=== PATIENT | female | born 1970 | race Caucasian/White ===

== ENCOUNTER → 2018-06-12 | Outpatient (CLI) | payer BC ==
--- NOTE | 2018-06-13 11:13 | XR ---
Right knee HISTORY: Right knee pain 3 views of the right knee Bone mineralization and alignment are maintained. Difficult to exclude suprapatellar joint effusion. Minimal marginal spurring medial compartment mild joint space loss. No fracture or infiltration. IMPRESSION: Possible mild osteoarthritis.
== END | disposition home or self-care (01) ==
LOC: RADXRYALE 15:59
PROVIDERS: ATTEND Physician Assistant Medical
DX: M25.561 Pain in right knee (principal)

== ENCOUNTER → 2019-03-23 | Outpatient (CLI) | payer BC ==
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
== END | disposition home or self-care (01) ==
LOC: RADMRIMAIN 08:00
PROVIDERS: ATTEND Psychiatry & Neurology Neurology
DX: R90.82 White matter disease, unspecified (principal)
CPT/HCPCS: 70551

== ENCOUNTER → 2019-04-06 | Outpatient (CLI) | payer BC ==
--- NOTE | 2019-04-06 15:26 | MR ---
EXAMINATION TYPE: MR brain w con DATE OF EXAM: 04/06/2019 COMPARISON: MRI brain March 23, 2019 HISTORY: Abnormal CT brain, demyelinating disease TECHNIQUE: Multiplanar, multisequence images of the brain and brainstem is performed with IV contrast, utilizing 10 mL intravenous Gadavist . FINDINGS: Post contrast images demonstrate no enhancing intraparenchymal lesions. Moderate amount of lesion is redemonstrated on FLAIR sagittal sequence without definitive infratentorial involvement ou tside of the dimple. The dural venous sinuses appear patent. IMPRESSION: No suspicious enhancing lesions to suggest active demyelinating disease
== END | disposition home or self-care (01) ==
LOC: RADMRIMAIN 14:36
PROVIDERS: ATTEND Psychiatry & Neurology Neurology
DX: G37.9 Demyelinating disease of central nervous system, unspecified (principal)
CPT/HCPCS: 70552; A9585

== ENCOUNTER → 2019-05-13 | Outpatient (CLI) | payer BC ==
--- NOTE | 2019-05-14 09:48 | MM ---
Reason for exam: screening (asymptomatic). Last mammogram was performed 5 years and 10 months ago. History: Excisional biopsy of the right breast, 2004. Physical Findings: A clinical breast exam by your physician is recommended on an annual basis and results should be correlated with mammographic findings. MG Screening Mammo w CAD Bilateral CC, MLO, and XCCL view(s) were taken. Prior study comparison: July 03, 2013, [facility] DIGITAL RIGHT MAMMOGRAM w/CAD. July 01, 2013, bilateral digital screening mammo w/CAD. There are scattered fibroglandular densities. Benign appearing calcifications in the right breast. Chronic deformity right breast consistent with previous biopsy. ASSESSMENT: Benign, BI-RAD 2 RECOMMENDATION: Routine screening mammogram of both breasts in 1 year.
== END | disposition home or self-care (01) ==
LOC: RADMAMWWP 17:06
PROVIDERS: ATTEND Family Medicine
DX: Z12.31 Encounter for screening mammogram for malignant neoplasm of breast (principal)
CPT/HCPCS: 77067

== ENCOUNTER 2020-03-18 20:50 | Emergency (ER) | payer BC, OTHER ==
[2020-03-18 21:01] VITALS: BP 131/78; PULSE 50; RESP 20; TEMP 97.6
== END 2020-03-18 21:55 | disposition home or self-care (01) ==
LOC: EC 20:50
DX: Z02.89 Encounter for other administrative examinations (principal)
CPT/HCPCS: 99499

== ENCOUNTER → 2021-08-04 | Outpatient (CLI) | payer BC ==
--- NOTE | 2021-08-08 09:48 | MM ---
Reason for exam: screening (asymptomatic). Last mammogram was performed 2 years and 3 months ago. History: Patient is postmenopausal. Excisional biopsy of the right breast, 2004. Physical Findings: A clinical breast exam by your physician is recommended on an annual basis and results should be correlated with mammographic findings. MG Screening Mammo w CAD Bilateral CC and MLO view(s) were taken. Prior study comparison: May 13, 2019, bilateral MG screening mammo w CAD. July 01, 2013, bilateral digital screening mammo w/CAD. There are scattered fibroglandular densities. Finding #1: There is stable architectural distortion in the upper quadrant, anterior position of the right breast. Finding #2: There are typically benign dystrophic calcifications in the anterior position of the right breast. There is no discrete abnormality. ASSESSMENT: Benign, BI-RAD 2 RECOMMENDATION: Routine screening mammogram of both breasts in 1 year.
== END | disposition home or self-care (01) ==
LOC: RADMAMWWP 08:17
PROVIDERS: ATTEND Family Medicine
DX: Z12.31 Encounter for screening mammogram for malignant neoplasm of breast (principal); Z78.0 Asymptomatic menopausal state
CPT/HCPCS: 77067

== ENCOUNTER → 2021-10-17 | Outpatient (CLI) | payer BC ==
--- NOTE | 2021-10-17 15:02 | XR ---
Lumbosacral spine HISTORY: Low back pain 5 views of the lumbosacral spine Lumbar vertebral bodies show reduced mineralization. There is an anterolisthesis grade 1 L5-S1. Super ior endplate of L3 shows loss of height of approximately 50%. Superior endplate of L1 also shows loss of height of approximately 50%. No definite retropulsion. Sclerosis is present in the posterior [place] ents of the lower lumbar spine. Some loss of disc height is present at L5-S1, L2-3 and L3-4. There is multilevel spondylosis. No evidence spondylolysis. There is a spinal curvature. IMPRESSION: Osteoporotic compression fractures are suspected. Spondylolisthesis. Degenerative disc di sease and facet arthropathy. A Yellow level critical message alert has been initiated for BRAN Shane via the [facility] Critical Results System on 10/17/2021 2:59 PM. This message alert has been sent to BRAN Shane via the preferences provided by the clinician for the receipt of Radiology Critical Fi ndings. Message ID [id number].
== END | disposition home or self-care (01) ==
LOC: RADXRYALE 14:06
PROVIDERS: ATTEND Physician Assistant Medical
DX: M43.17 Spondylolisthesis, lumbosacral region (principal); M51.36 Other intervertebral disc degeneration, lumbar region
CPT/HCPCS: 72110

== ENCOUNTER → 2021-11-06 | Outpatient (CLI) | payer BC ==
--- NOTE | 2021-11-06 15:08 | USB ---
Reason for exam: clinical finding. History: Patient is postmenopausal. Excisional biopsy of the right breast, 2004. Physical Findings: Nurse Summary: 0.5cm palpable in the right breast (nurse ms). US Breast Limited RT Right limited breast ultrasound including focal area of concern, retroareolar and axilla demonstrates a 0.4 x 0.4 x 0.2cm oval, irregular, solid, calcification at 11 o'clock scar, a 1.3 x 1.6 x 1.2cm oval, cystic lesion at 11 o'clock and a 1.2 x 1.6 x 0.6cm oval, irregular, cystic cluster at 12 o'clock. These results were verbally communicated with the patient and result sheet given to the patient on 11/06/21. ASSESSMENT: Benign, BI-RAD 2 RECOMMENDATION: Return to routine screening mammogram schedule for both breasts. Back on schedule for August 2022. Manage patient on a clinical basis.
== END | disposition home or self-care (01) ==
LOC: RADUSWWP 14:24
PROVIDERS: ATTEND Family Medicine
DX: N63.11 Unspecified lump in the right breast, upper outer quadrant (principal); Z78.0 Asymptomatic menopausal state

== ENCOUNTER 2022-11-17 03:22 | Inpatient (IN) | payer BC ==
[2022-11-17] MEDS ORDERED: MORPHINE SULFATE 4 MG/ML SYRINGE IVP STA (03:37)
[2022-11-17] MEDS ORDERED: ONDANSETRON 4 MG/2 ML VIAL IVP STA (03:37)
[2022-11-17 03:54] LABS: Basophils # (A) 0.1 k/uL (0-0.2); Basophils % (A) 1 %; Eosinophils # (A) 0.1 k/uL (0-0.7); Eosinophils % (A) 1 %; HCT 38.5 % (34.0-46.0); HGB 12.9 gm/dL (11.4-16.0); Lymphocytes # (A) 0.9 k/uL (1.0-4.8); Lymphocytes % (A) 9 %; MCH 30.4 pg (25.0-35.0); MCHC 33.4 g/dL (31.0-37.0); MCV 91.1 fL (80.0-100.0); Mean Platelet Volume 7.1; Monocytes # (A) 0.4 k/uL (0-1.0); Monocytes % (A) 4 %; Neutrophils # (A) 8.5 k/uL (1.3-7.7); Neutrophils % (A) 85 %; Platelet Count 260 k/uL (150-450); RBC 4.23 m/uL (3.80-5.40); RDW 12.7 % (11.5-15.5); WBC 10.1 k/uL (3.8-10.6)
--- NOTE | 2022-11-17 03:57 | XR ---
EXAMINATION TYPE: XR Hip LT and AP Pelvis DATE OF EXAM: 11/17/2022 COMPARISON: NONE HISTORY: Fall. Pain TECHNIQUE: 4 views FINDINGS: There is an acute intertrochanteric fracture left femur. There is mild coxa vera deformity. The pelvic ring is intact. Sacroiliac joints are intact. No pelvic fracture. IMPRESSION: Acute intertrochanteric fracture left femur.
--- NOTE | 2022-11-17 03:59 | XR ---
EXAMINATION TYPE: XR chest 1V DATE OF EXAM: 11/17/2022 COMPARISON: 09/22/2015 HISTORY: Fall. Pain TECHNIQUE: Single view FINDINGS: There is no heart failure nor confluent-like infiltrate. Exam limited by rotation. No pleur al effusion. There are chest leads. There is fracture left posterior lateral fifth rib that could be an acute fracture. There are old left-sided rib fractures. IMPRESSION: No active cardiopulmonary disease. There is likely an acute fracture of the left fifth ri b.
[2022-11-17 04:07] LABS: ALT 26 U/L (4-34); AST 36 U/L (14-36); African American GFR (CKD) >90 (>60 ml/min/1.73 sqM); Alkaline Phosphatase 117 U/L (38-126); Anion Gap 6 mmol/L; Blood Urea Nitrogen 17 mg/dL (7-17); Calcium 8.5 mg/dL (8.4-10.2); Carbon Dioxide 26 mmol/L (22-30); Chloride 104 mmol/L (98-107); Glucose 118 mg/dL (74-99); Non-African American GFR(CKD) >90 (>60 ml/min/1.73 sqM); Potassium 4.1 mmol/L (3.5-5.1); Sodium 136 mmol/L (137-145); Total Bilirubin 0.4 mg/dL (0.2-1.3); Total Protein 6.8 g/dL (6.3-8.2)
[2022-11-17 04:08] LABS: INR 0.9 (<1.2); Partial Thromboplastin Time 24.3 sec (22.0-30.0); Prothrombin Time 9.8 sec (9.0-12.0)
[2022-11-17] MEDS ORDERED: HYDROmorphone 0.5 MG/0.5 ML SYRINGE IVP STA (04:11)
[2022-11-17] MEDS ORDERED: HYDROmorphone 1 MG/ML 1 ML SYRINGE IVP STA (04:15)
--- NOTE | 2022-11-17 04:25 | ED ---
Fall HPI - General Chief Complaint: Fall Stated Complaint: Left hip injury Time Seen by Provider: 11/17/22 03:31 Source: patient, EMS, RN notes reviewed, old records reviewed Mode of arrival: EMS Limitations: no limitations - History of Present Illness Initial Comments: This is a 52-year-old female DF for evaluation. Patient coming in with EMS for severe left hip pain after fall fall from standing with severe left hip pain. No other injuries noted patient did not hit her head no loss of consciousness MD Complaint: fall -: hour(s) Fall From: standing When Fall Occurred: 1 hour CONTENT EDITOR Fall Witnessed: yes, by family Place Fall Occurred: home Loss of Consciousness: none Prolonged Down Time?: no Symptoms Prior to Fall: none Location - Extremities: Left: Thigh, Knee Severity: severe Severity scale (1-10): 7 Quality: burning Context: tripped/slipped Associated Symptoms: denies - Related Data Home Medications Medication Instructions Recorded Confirmed Albuterol Inhaler [Ventolin Hfa 2 puff INHALATION RT-QID PRN 11/17/22 11/17/22 Inhaler] FLUoxetine HCL 60 mg PO DAILY 11/17/22 11/17/22 buPROPion XL [Wellbutrin XL] 150 mg PO DAILY 11/17/22 11/17/22 traZODone HCL [Desyrel] 50 mg PO HS PRN 11/17/22 11/17/22 Previous Rx's Medication Instructions Recorded Aspirin [Adult Low Dose Aspirin EC] 81 mg PO BID #60 tab 11/19/22 Docusate [Colace] 100 mg PO BID #60 capsule 11/19/22 HYDROcodone/APAP 7.5-325MG [[place] 1 - 2 each PO Q6HR PRN #42 tab 11/19/22 7.5-325] Ferrous Sulfate [Slow Fe] 142 mg PO DAILY #30 tab 11/20/22 Fluticasone Propion/Salmeterol 1 inhalation PO BID #1 each 11/20/22 [Advair 250-50 Diskus] Multivitamins, Thera [Multivitamin 1 each PO DAILY@1200 tab 11/22/22 (formulary)] Sennosides-Docusate Sodium 2 each PO HS tab 11/22/22 [Senokot-S] Allergies Allergy/AdvReac Type Severity Reaction Status Date / Time Penicillins Allergy Rash/Hives Verified 11/18/22 15:28 Sulfa (Sulfonamide Allergy Rash/Hives Verified 11/18/22 15:28 Antibiotics) Review of Systems ROS Statement: Those systems with pertinent positive or pertinent negative responses have been documented in the HPI. ROS Other: All systems not noted in ROS Statement are negative. Past Medical History Past Medical History: No Reported History History of Any Multi-Drug Resistant Organisms: MRSA Date of last positivie culture/infection: 2010 MDRO Source:: lt ankle Past Surgical History: Section, Orthopedic Surgery Additional Past Surgical History / Comment(s): lt foot- bone spur, rt ovary Past Psychological History: Depression Past Alcohol Use History: None Reported Past Drug Use History: None Reported - Past Family History Father Additional Family Medical History / Comment(s): CAD with IA and CABG in early 60s General Exam Limitations: physical limitation General appearance: alert, in no apparent distress Head exam: Present: atraumatic, normocephalic, normal inspection Eye exam: Present: normal appearance, PERRL, EOMI. Absent: scleral icterus, co njunctival injection, periorbital swelling ENT exam: Present: normal exam, mucous membranes moist Neck exam: Present: normal inspection. Absent: tenderness, meningismus, lymphadenopathy Respiratory exam: Present: normal lung sounds bilaterally. Absent: respiratory distress, wheezes, rales, rhonchi, stridor Cardiovascular Exam: Present: regular rate, normal rhythm, normal heart sounds. Absent: systolic murmur, diastolic murmur, rubs, gallop, clicks GI/Abdominal exam: Present: soft, normal bowel sounds. Absent: distended, tenderness, guarding, rebound, rigid Extremities exam: Present: normal inspection, full ROM, normal capillary refill, other (Left hip pain). Absent: tenderness, pedal edema, joint swelling, calf tenderness Back exam: Present: normal inspection Neurological exam: Present: alert, oriented X3, CN II-XII intact Psychiatric exam: Present: normal affect, normal mood Skin exam: Present: warm, dry, intact, normal color. Absent: rash Course Vital Signs 11/17/22 11/17/22 03:23 05:00 Temperature 97.8 F Pulse Rate 88 98 Respiratory 16 18 Rate Blood Pressure 152/76 O2 Sat by Pulse 97 Oximetry - Reevaluation(s) Reevaluation #1: 11/17/22 medical record is reviewed Patient symptoms are improved here in the ER Patient informed of results and questions answered Medical Decision Making - Lab Data Result diagrams: 11/21/22 05:28 11/17/22 03:41 Lab Results 11/17/22 11/17/22 11/17/22 Range/Units 03:40 03:41 03:41 WBC 10.1 (3.8-10.6) k/uL RBC 4.23 (3.80-5.40) m/uL Hgb 12.9 (11.4-16.0) gm/dL Hct 38.5 (34.0-46.0) % MCV 91.1 (80.0-100.0) fL MCH 30.4 (25.0-35.0) pg MCHC 33.4 (31.0-37.0) g/dL RDW 12.7 (11.5-15.5) % Plt Count 260 (150-450) k/uL MPV 7.1 Neutrophils % 85 % Lymphocytes % 9 % Monocytes % 4 % Eosinophils % 1 % Basophils % 1 % Neutrophils # 8.5 H (1.3-7.7) k/uL Lymphocytes # 0.9 L (1.0-4.8) k/uL Monocytes # 0.4 (0-1.0) k/uL Eosinophils # 0.1 (0-0.7) k/uL Basophils # 0.1 (0-0.2) k/uL PT 9.8 (9.0-12.0) sec INR 0.9 (<1.2) APTT 24.3 (22.0-30.0) sec Sodium (137-145) mmol/L Potassium (3.5-5.1) mmol/L Chloride (98-107) mmol/L Carbon Dioxide (22-30) mmol/L Anion Gap mmol/L BUN (7-17) mg/dL Creatinine (0.52-1.04) mg/dL Est GFR (CKD-EPI)AfAm (>60 ml/min/1.73 sqM) Est GFR (CKD-EPI)NonAf (>60 ml/min/1.73 sqM) Glucose (74-99) mg/dL Calcium (8.4-10.2) mg/dL Total Bilirubin (0.2-1.3) mg/dL AST (14-36) U/L ALT (4-34) U/L Alkaline Phosphatase (38-126) U/L Total Protein (6.3-8.2) g/dL Albumin (3.5-5.0) g/dL Blood Type O Positive Blood Type Confirm Blood Type Recheck No Previous Record Bld Type Recheck Status CABO Indicated Antibody Screen NEGATIVE Spec Expiration Date 11/20/2022 - 233911/17/22 11/17/22 Range/Units 03:41 03:45 WBC (3.8-10.6) k/uL RBC (3.80-5.40) m/uL Hgb (11.4-16.0) gm/dL Hct (34.0-46.0) % MCV (80.0-100.0) fL MCH (25.0-35.0) pg MCHC (31.0-37.0) g/dL RDW (11.5-15.5) % Plt Count (150-450) k/uL MPV Neutrophils % % Lymphocytes % % Monocytes % % Eosinophils % % Basophils % % Neutrophils # (1.3-7.7) k/uL Lymphocytes # (1.0-4.8) k/uL Monocytes # (0-1.0) k/uL Eosinophils # (0-0.7) k/uL Basophils # (0-0.2) k/uL PT (9.0-12.0) sec INR (<1.2) APTT (22.0-30.0) sec Sodium 136 L (137-145) mmol/L Potassium 4.1 (3.5-5.1) mmol/L Chloride 104 (98-107) mmol/L Carbon Dioxide 26 (22-30) mmol/L Anion Gap 6 mmol/L BUN 17 (7-17) mg/dL Creatinine 0.67 (0.52-1.04) mg/dL Est GFR (CKD-EPI)AfAm >90 (>60 ml/min/1.73 sqM) Est GFR (CKD-EPI)NonAf >90 (>60 ml/min/1.73 sqM) Glucose 118 H (74-99) mg/dL Calcium 8.5 (8.4-10.2) mg/dL Total Bilirubin 0.4 (0.2-1.3) mg/dL AST 36 (14-36) U/L ALT 26 (4-34) U/L Alkaline Phosphatase 117 (38-126) U/L Total Protein 6.8 (6.3-8.2) g/dL Albumin 4.0 (3.5-5.0) g/dL Blood Type Blood Type Confirm O Positive Blood Type Recheck Bld Type Recheck Status Antibody Screen Spec Expiration Date - EKG Data -: EKG Interpreted by Me (EKG is sinus 88 MO 150 QRS 100 QTc 409) - Radiology Data Radiology results: report reviewed (CT brain C-spine chest pelvis and hip x-ray show positive hip fracture), image reviewed Disposition Clinical Impression: Fall, Closed left hip fracture Disposition: HOME SELF-CARE Condition: Fair Is patient prescribed a controlled substance at d/c from ED?: No Time of Disposition: 04:35
[2022-11-17] MEDS ORDERED: ONDANSETRON 4 MG/2 ML VIAL IVP PRN (04:33)
[2022-11-17] MEDS ORDERED: NALOXONE 0.4 MG/ML 1 ML VIAL IV PRN (04:33)
[2022-11-17] MEDS: SODIUM CHLORIDE 0.9% 1,000 ML IV SCH ×2 (04:40→20:39)
--- NOTE | 2022-11-17 04:43 | CT ---
EXAMINATION TYPE: CT brain cspine wo con DATE OF EXAM: 11/17/2022 COMPARISON: Head CT 02/19/2019 HISTORY: Fall CT DLP: 1799.7 mGycm Automated exposure control for dose reduction was used. Images of the brain and cervical spine obtained with no contrast. Ventricles have normal size. There is no mass effect or midline shift. No sign of intracranial hemorr estelita. There is some mild hypodensity in the white matter of both frontal lobes. There is subtle hypod ensity in the right posterior parietal lobe white matter. Calvarium is intact. Cervical vertebra have normal alignment. Posterior elements are intact. No compression fracture. Face t joints are intact. Prevertebral soft tissues are intact. There is mild anterior spurring at C3-4 and C4-5. There is norm al aeration of the mastoid sinuses. IMPRESSION: There is some mild white matter hypodensity that could be microvascular ischemia and appears more not iceable than old exam. Minor degenerative spurring in the cervical spine. No fracture.
[2022-11-17] MEDS: HYDROmorphone 1 MG/ML 1 ML SYRINGE IVP PRN ×4 (07:55→18:54)
[2022-11-17] MEDS ORDERED: TEMAZEPAM 15 MG CAP PO PRN (11:02)
[2022-11-17] MEDS ORDERED: MAGNESIUM HYDROXIDE 2,400 MG/10 ML CUP PO PRN (11:02)
[2022-11-17] MEDS ORDERED: ACETAMINOPHEN TAB 325 MG TAB PO PRN (11:02)
[2022-11-17] MEDS ORDERED: traMADol 50 MG TAB PO PRN (11:02)
[2022-11-17] MEDS ORDERED: bisacodyL 10 MG SUPP RECTAL PRN (11:02)
[2022-11-17] MEDS ORDERED: NA PHOS,M-B/NA PHOS,DI-BA 133 ML ENEMA RECTAL PRN (11:02)
[2022-11-17] MEDS ORDERED: ALBUTEROL NEBULIZED 2.5 MG/3 ML INHALATION PRN (11:35)
[2022-11-17] MEDS: diazePAM 5 MG TAB PO PRN ×2 (11:42→20:39)
[2022-11-17] MEDS: FLUoxetine HCL 20 MG CAP PO SCH (11:42)
[2022-11-17] MEDS ORDERED: NICOTINE GUM (POLACRILEX) 2 MG GUM BUCCAL PRN (11:47)
--- NOTE | 2022-11-17 11:52 | P.CONS ---
History of Present Illness - Reason for Consult Consult date: 11/17/22 - History of Present Illness Patient is a 52-year-old female with a history of asthma, tobacco abuse, and prior MRSA infection who presented to the ER after a fall off the toilet. She was subsequently been admitted to orthopedic surgery and we were asked to consult for medical management and preoperative evaluation. Hip x-ray-left intertrochanteric femur fracture Chest x-ray-left fifth rib fracture CT head and [id number] white matter hypodensity could be microvascular ischemia, minor degenerative spurring cervical spine. No fracture Patient seen and examined at bedside. She reports that she fell asleep, toilet yesterday and fell off. She denies any recent chest pain or syncopal episodes. For the last 6 months to one year she has been short of breath with exertion. She does have some shortness of breath with climbing up a flight of stairs or walking 3 blocks. She has not had any changes in her inhaler regiment. She has no history of any prior coronary artery disease. She adamantly denies any chest pain. She smokes approximately one pack daily. She takes albuterol as needed however she is using her rescue inhaler at least 3 times but more often multiple times throughout the week. She is actively wheezing, she states that she typically is wheezing like this every day. Currently she does complain of pain and spasming in her head. She denies any lightheadedness, dizziness, nausea, vomiting, difficulty with urination. Pertinent positives and negatives as discussed in HPI, a complete review of systems was performed and all other systems are negative. Vital signs reviewed General: nontoxic, no distress, appears at stated age Derm: warm, dry Head: atraumatic, normocephalic, symmetric Eyes: EOMI, no lid lag, anicteric sclera, pupils equal round reactive to light ENT: Nose and ears atraumatic, no thrush, no pharyngeal erythema Neck: No thyromegaly, no cervical lymphadenopathy, trachea midline, supple Mouth: no lip lesion, mucus membranes moist Cardiovascular: S1S2 reg, no murmur, positive posterior tibial pulse bilateral, no edema, capillary refill less than 2 seconds Lungs: Wheezing bilaterally, no rhonchi, no rales, no wheeze, no accessory muscle use Abdominal: soft, nontender to palpation, no guarding, no appreciable organomegaly, normal bowel sounds Ext: no gross muscle atrophy, muscle strength 5 out of 5 in all 4 extremities, no contractures Neuro: CN II-XII grossly intact, light touch intact all 4 extremities, finger to nose within normal limits, Psych: Alert, oriented, appropriate affect Assessment/Plan: Patient is a 52-year-old female with a left femur fracture status post fall - Plan is for IM nailing tomorrow - NSQIP despite dyspnea with exertion risk for IM nailing at cardiac complication 0.1% 0% serious complication 3.6% no additional testing need at this time, medically optimized for surgery with the addition of duonebs. discussed concerns for respiratory issues to arise post-op including PNA, patient and aware -Patient will need outpatient bone density testing for osteoprosis Moderate persistent asthma, suboptimally controlled -Doubt acute exacerbation as patient states that breathing is at baseline. -Start scheduled DuoNeb's and when necessary albuterol -Patient would benefit from a maintenance inhaler or leukotriene agonist on discharge. Tobacco abuse - nicotine replacement - cessation Thank you for allowing us to participate in the care of this pleasant patient. Do not hesitate to contact us with questions. Someone can be reached from the [facility] hospitalist group all hours of the day at [phone] or via [employer]. Past Medical History Past Medical History: Asthma Additional Past Medical History / Comment(s): Compression fractures in lower spine, depression History of Any Multi-Drug Resistant Organisms: MRSA Year Discovered:: 2010 MDRO Source:: lt ankle Past Surgical History: Section, Orthopedic Surgery Additional Past Surgical History / Comment(s): lt foot- bone spur, rt ovarian tumor removed, 2 right breast lumpectomy Past Psychological History: Depression Smoking Status: Current every day smoker (1 PPD) Past Alcohol Use History: None Reported, Rare Past Drug Use History: None Reported - Past Family History Father Additional Family Medical History / Comment(s): CAD with MA and CABG in early 60s Medications and Allergies Home Medications Medication Instructions Recorded Confirmed Type Albuterol Inhaler [Ventolin Hfa 2 puff INHALATION RT-QID PRN 11/17/22 11/17/22 History Inhaler] FLUoxetine HCL 60 mg PO DAILY 11/17/22 11/17/22 History buPROPion XL [Wellbutrin XL] 150 mg PO DAILY 11/17/22 11/17/22 History traZODone HCL [Desyrel] 50 mg PO HS PRN 11/17/22 11/17/22 History Allergies Allergy/AdvReac Type Severity Reaction Status Date / Time Penicillins Allergy Rash/Hives Verified 11/17/22 11:32 Sulfa (Sulfonamide Allergy Rash/Hives Verified 11/17/22 11:32 Antibiotics) Physical Exam Osteopathic Statement: *. No significant issues noted on an osteopathic st ructural exam other than those noted in the History and Physical/Consult. Vitals: Vital Signs Temp Pulse Pulse Resp BP BP Pulse Ox 11/17/22 05:40 99.4 F 91 17 165/90 96 11/17/22 05:00 98 18 11/17/22 03:23 97.8 F 88 16 152/76 97 Intake and Output 11/16/22 11/17/22 11/17/22 22:59 06:59 14:59 Other: Weight 90.718 kg 90.718 kg Results CBC & Chem 7: 11/17/22 03:41 11/17/22 03:41 Labs: Abnormal Lab Results - Last 24 Hours (Table) 11/17/22 11/17/22 Range/Units 03:41 03:41 Neutrophils # 8.5 H (1.3-7.7) k/uL Lymphocytes # 0.9 L (1.0-4.8) k/uL Sodium 136 L (137-145) mmol/L Glucose 118 H (74-99) mg/dL
[2022-11-17] MEDS: IPRATROPIUM-ALBUTEROL 3 ML NEB INHALATION SCH ×3 (12:23→19:08)
[2022-11-17] MEDS: HYDROcodone/APAP 10-325MG 1 EACH TAB PO PRN ×2 (13:15→20:38)
[2022-11-17] MEDS: buPROPion XL 150 MG TAB.ER.24H PO SCH (15:23)
[2022-11-17] MEDS: SENNOSIDES-DOCUSATE SODIUM 1 EACH TAB PO SCH (20:40)
--- NOTE | 2022-11-17 23:14 | P.HPOR ---
History of Present Illness H&P Date: 11/17/22 Chief Complaint: Left hip fracture Patient is a pleasant 52 yo female seen and examined at bedside this morning. She was admitted through the ED late last evening after reporting that she fell asleep on toilet yesterday and fell off onto her left hip. She developed immediate sever pain and unable to ambulate..She continues to have pain as expected at the left hip. She denies knee,ankle foot pain. She denies numbness,calf pain or other. Review of Systems All systems: negative Constitutional: Denies chills, Denies fever Eyes: denies blurred vision, denies pain Ears, nose, mouth and throat: Denies headache, Denies sore throat Cardiovascular: Denies chest pain, Denies shortness of breath Respiratory: Denies cough Gastrointestinal: Denies abdominal pain, Denies diarrhea, Denies nausea, Denies vomiting Genitourinary: Denies dysuria, Denies hematuria Musculoskeletal: Denies myalgias Integumentary: Denies pruritus, Denies rash Neurological: Denies numbness, Denies weakness Psychiatric: Denies anxiety, Denies depression Endocrine: Denies fatigue, Denies weight change Past Medical History Past Medical History: Asthma Additional Past Medical History / Comment(s): Compression fractures in lower spine, depression History of Any Multi-Drug Resistant Organisms: MRSA Date of last positivie culture/infection: 2010 MDRO Source:: lt ankle Past Surgical History: Section, Orthopedic Surgery Additional Past Surgical History / Comment(s): lt foot- bone spur, rt ovarian tumor removed, 2 right breast lumpectomy Past Psychological History: Depression Smoking Status: Current every day smoker (1 PPD) Past Alcohol Use History: None Reported, Rare Past Drug Use History: None Reported - Past Family History Father Additional Family Medical History / Comment(s): CAD with TX and CABG in early 60s Medications and Allergies Home Medications Medication Instructions Recorded Confirmed Type Albuterol Inhaler [Ventolin Hfa 2 puff INHALATION RT-QID PRN 11/17/22 11/17/22 History Inhaler] FLUoxetine HCL 60 mg PO DAILY 11/17/22 11/17/22 History buPROPion XL [Wellbutrin XL] 150 mg PO DAILY 11/17/22 11/17/22 History traZODone HCL [Desyrel] 50 mg PO HS PRN 11/17/22 11/17/22 History Allergies Allergy/AdvReac Type Severity Reaction Status Date / Time Penicillins Allergy Rash/Hives Verified 11/17/22 11:32 Sulfa (Sulfonamide Allergy Rash/Hives Verified 11/17/22 11:32 Antibiotics) Physical Examination Inspection of the lower extremitie shows a shortened externally rotated left lower extremity. There are no wounds, erythema or ecchymoses. The knee is nontender without effusion. She has painless range of motion of the knee, ankle foot and toes. Range of motion of the left hip is not tested due to fracture. Neurovascular status is intact throughout the lower extremity with motor and sensation fully intact. Calf is soft and nontender. 2+ dorsalis pedis pulse and less than 2 second cap refill is present. Results - Labs Labs: Abnormal Lab Results - Last 24 Hours (Table) 11/17/22 11/17/22 Range/Units 03:41 03:41 Neutrophils # 8.5 H (1.3-7.7) k/uL Lymphocytes # 0.9 L (1.0-4.8) k/uL Sodium 136 L (137-145) mmol/L Glucose 118 H (74-99) mg/dL H & H 11/17/22 Range/Units 03:41 Hgb 12.9 (11.4-16.0) gm/dL Hct 38.5 (34.0-46.0) % Coagulation 11/17/22 Range/Units 03:41 INR 0.9 (<1.2) Result Diagrams: 11/17/22 03:41 11/17/22 03:41 - Diagnostic results Hip x-ray: report reviewed, image reviewed (left IT femur fracture) Assessment and Plan (1) Closed left hip fracture Narrative/Plan: Patient has been reviewed with Dr. Funez. Plan is to proceed with surgical intervention,Saturday11/18/22, including IM hip screw/gamma nail for her IT femur fracture. She is NPO after MN. Procedure and consent ordered. Patient understands risks and benefits and desires to proceed. Current Visit: Yes Status: Acute Code(s): S72.002A - FRACTURE OF UNSP PART OF NECK OF LEFT FEMUR, INIT SNOMED Code(s): 994551701 Plan: Left hip IM hip screw gamma nail for left IT femur fracture Time with Patient: Less than 30
[2022-11-18] MEDS: HYDROmorphone 1 MG/ML 1 ML SYRINGE IVP PRN ×4 (02:57→22:30)
[2022-11-18] MEDS: IPRATROPIUM-ALBUTEROL 3 ML NEB INHALATION SCH ×4 (07:09→21:26)
[2022-11-18] MEDS: FLUoxetine HCL 20 MG CAP PO SCH (07:16)
[2022-11-18] MEDS: HYDROcodone/APAP 10-325MG 1 EACH TAB PO PRN ×2 (07:16→20:06)
[2022-11-18] MEDS: diazePAM 5 MG TAB PO PRN ×2 (07:16→20:07)
[2022-11-18] MEDS: buPROPion XL 150 MG TAB.ER.24H PO SCH (07:26)
[2022-11-18] MEDS: SODIUM CHLORIDE 0.9% 1,000 ML IV SCH ×2 (09:12→09:39)
[2022-11-18 09:37] LABS: Basophils # (A) 0.05 X 10*3/uL (0.00-0.10); Basophils % (A) 0.7 %; Eosinophils # (A) 0.08 X 10*3/uL (0.04-0.35); Eosinophils % (A) 1.1 %; HCT 34.5 % (37.2-46.3); HGB 11.3 g/dL (12.0-15.0); Immature Grans, Automated 0.7 %; Lymphocytes # (A) 0.91 X 10*3/uL (0.90-5.00); Lymphocytes % (A) 12.8 %; MCH 30.2 pg (27.0-32.0); MCHC 32.8 g/dL (32.0-37.0); MCV 92.2 fL (80.0-97.0); Mean Platelet Volume 8.8 fL (9.5-12.2); Monocytes # (A) 0.59 X 10*3/uL (0.20-1.00); Monocytes % (A) 8.3 %; NRBC Per 100 WBC 0 /100 WBCS (0.0-0.0); Neutrophils # (A) 5.45 X 10*3/uL (1.80-7.70); Neutrophils % (A) 76.4 %; Platelet Count 205 X 10*3/uL (140-440); RBC 3.74 X 10*6/uL (4.10-5.20); WBC 7.13 X 10*3/uL (4.50-10.00)
[2022-11-18] MEDS: MULTIVITAMINS, THERA 1 EACH TAB PO SCH (09:56)
--- NOTE | 2022-11-18 11:05 | P.PN ---
Subjective Progress Note Date: 11/18/22 Patient is a 52-year-old female with a history of asthma, tobacco abuse, and prior MRSA infection who presented to the ER after a fall off the toilet. She was subsequently been admitted to orthopedic surgery and we were asked to consult for medical management and preoperative evaluation. Seen and examined at bedside. Feeling slightly better as pain is better controlled today. No chest pain, chronic shortness of breath is better than yesterday. present at bedside and all questions answered. General: nontoxic, no distress, appears at stated age Derm: warm, dry Head: atraumatic, normocephalic, symmetric Eyes: EOMI, no lid lag, anicteric sclera Mouth: no lip lesion, mucus membranes moist Cardiovascular: S1S2 reg, no murmur, positive posterior tibial pulse bilateral, Lungs: Faint expiratory wheeze bilateral, ronchi left base, no rales , no accessory muscle use Ext: no gross muscle atrophy, no edema, no contractures Neuro: CN II-XI grossly intact, no focal neuro deficits Psych: Alert, oriented, appropriate affect Assessment/Plan: Patient is a 52-year-old female with a left femur fracture status post fall - Plan is for IM nailing today - NSQIP calculated yesterday despite dyspnea with exertion risk for IM nailing at cardiac complication 0.1% 0% serious complication 3.6% no additional testing need at this time, medically optimized for surgery with the addition of duonebs. discussed concerns for respiratory issues to arise post-op including PNA, patient and aware -Patient will need outpatient bone density testing for osteoprosis Moderate persistent asthma, suboptimally controlled -Doubt acute exacerbation as patient states that breathing is at baseline. -continue scheduled DuoNeb's and when necessary albuterol -Patient would benefit from a maintenance inhaler or leukotriene agonist on discharge. Elevated blood pressure with out diagnosis of hypertension -Suspect secondary to pain -Continue to follow blood pressures Tobacco abuse - nicotine replacement - cessation Thank you for allowing us to participate in the care of this pleasant patient. Do not hesitate to contact us with questions. Someone can be reached from the [facility] hospitalist group all hours of the day at [phone] or via perfect serve. Active Medications Generic Name Dose Route Start Last Admin Trade Name Freq PRN Reason Stop Dose Admin Acetaminophen 650 mg 11/17/22 11:02 Acetaminophen Tab 325 Mg Tab PO Q4HR PRN Pain Scale 1 to 5 Hydrocodone Bitart/Acetaminophen 1 each 11/17/22 11:02 Hydrocodone/Apap 5-325mg 1 Each Tab PO Q6HR PRN Pain Scale 1 to 5 Hydrocodone Bitart/Acetaminophen 1 each 11/17/22 11:02 11/18/22 07:16 Hydrocodone/Apap 10-325mg 1 Each Tab PO 1 each Q6H PRN Administration Pain Scale 6 to 10 Albuterol Sulfate 2.5 mg 11/17/22 11:35 Albuterol Nebulized 2.5 Mg/3 Ml INHALATION RT-QID PRN Shortness Of Breath Or Wheezing Albuterol/Ipratropium 3 ml 11/17/22 12:00 11/18/22 11:00 Ipratropium-Albuterol 3 Ml Neb INHALATION 3 ml RT-QID JAYSHREE Administration Bisacodyl 10 mg 11/17/22 11:02 Bisacodyl 10 Mg Supp RECTAL DAILY PRN Constipation Bupropion HCl 150 mg 11/17/22 11:45 11/18/22 07:26 Bupropion Xl 150 Mg Tab.Er.24h PO 150 mg DAILY JAYSHREE Administration Diazepam 2.5 mg 11/17/22 11:02 11/18/22 07:16 Diazepam 5 Mg Tab PO 2.5 mg Q8HR PRN Administration Mild Spasms Fluoxetine HCl 60 mg 11/17/22 11:45 11/18/22 07:16 Fluoxetine Hcl 20 Mg Cap PO 60 mg DAILY JAYSHREE Administration Hydromorphone HCl 0.5 mg 11/17/22 04:33 Hydromorphone 0.5 Mg/0.5 Ml Syringe IVP Q3HR PRN Moderate Pain (Scale 4 to 6) Hydromorphone HCl 1 mg 11/17/22 04:33 11/18/22 09:39 Hydromorphone 1 Mg/Ml 1 Ml Syringe IVP 1 mg Q3HR PRN Administration Severe Pain (Scale 7 to 10) Sodium Chloride 1,000 mls @ 75 mls/hr 11/17/22 04:45 11/18/22 09:39 Saline 0.9% IV 75 mls/hr .[id number] JAYSHREE Administration Magnesium Hydroxide 2,400 mg 11/17/22 11:02 Magnesium Hydroxide 2,400 Mg/10 Ml Cup PO DAILY PRN Constipation Multivitamins 1 each 11/18/22 12:00 11/18/22 09:56 Multivitamins, Thera 1 Each Tab PO Not Given DAILY@1200 JAYSHREE Naloxone HCl 0.2 mg 11/17/22 04:33 Naloxone 0.4 Mg/Ml 1 Ml Vial IV Q2M PRN Opioid Reversal Nicotine Polacrilex 2 mg 11/17/22 11:47 Nicotine Gum (Polacrilex) 2 Mg Gum BUCCAL Q4HR PRN Nicotine Cravings Ondansetron HCl 4 mg 11/17/22 04:33 Ondansetron 4 Mg/2 Ml Vial IVP Q8HR PRN Nausea And Vomiting Senna/Docusate Sodium 2 each 11/17/22 21:00 11/17/22 20:40 Sennosides-Docusate Sodium 1 Each Tab PO Not Given HS JAYSHREE Sodium Biphosphate/Sodium Phosphate 133 ml 11/17/22 11:02 Na Phos,M-B/Na Phos,Di-Ba 133 Ml Enema RECTAL DAILY PRN Constipation Temazepam 15 mg 11/17/22 11:02 Temazepam 15 Mg Cap PO HS PRN Insomnia Tramadol HCl 50 mg 11/17/22 11:02 Tramadol 50 Mg Tab PO Q6HR PRN Pain Scale 1 to 5 Objective - Vital Signs Vital signs: Vital Signs Temp 99.5 F 11/18/22 07:44 Pulse 76 11/18/22 11:02 Resp 18 11/18/22 07:44 BP 160/95 11/18/22 07:44 Pulse Ox 91 L 11/18/22 07:44 FiO2 Intake & Output 11/17/22 11/18/22 11/18/22 18:59 06:59 18:59 Output Total 1500 550 Balance -1500 -550 Weight 90.718 kg Output: Urine 1500 550 Other: Voiding Method Indwelling Catheter Indwelling Catheter Indwelling Catheter - Labs CBC & Chem 7: 11/18/22 06:31 11/17/22 03:41 Labs: Abnormal Lab Results - Last 24 Hours (Table) 11/18/22 Range/Units 06:31 RBC 3.74 L (4.10-5.20) X 10*6/uL Hgb 11.3 L (12.0-15.0) g/dL Hct 34.5 L (37.2-46.3) % MPV 8.8 L (9.5-12.2) fL Immature Gran # 0.05 H (0.00-0.04) X 10*3/uL
[2022-11-18] MEDS ORDERED: IV FLUID CONTINUATION 1,000 ML IV ONE (15:12)
[2022-11-18 15:23] LABS: Glucose,Whole Blood 72 mg/dL (70-110)
[2022-11-18] MEDS ORDERED: ONDANSETRON 4 MG/2 ML VIAL IVP ONE (15:37)
[2022-11-18] MEDS ORDERED: DEXAMETHASONE SOD PHOSPHATE 4 MG/ML 1 ML VIAL IVP ONE (15:37)
[2022-11-18] MEDS ORDERED: PROPOFOL 10 MG/ML 20 ML VIAL IV ONE (15:52)
[2022-11-18] MEDS ORDERED: SUCCINYLCHOLINE CHLORIDE 200 MG/10 ML VIAL IV ONE (15:52)
[2022-11-18] MEDS ORDERED: HYDROmorphone (PF) 1 MG/ML ONE (15:52)
[2022-11-18] MEDS ORDERED: NEOSTIGMINE 1 MG/ML 10 ML VIAL ONE (15:52)
[2022-11-18] MEDS ORDERED: fentaNYL (PF) 50 MCG/ML 2 ML AMP ONE (15:52)
[2022-11-18] MEDS ORDERED: PHENYLEPHRINE-0.9% NACL SYG 1,000 MCG/10 ML SYRINGE ONE (15:52)
[2022-11-18] MEDS ORDERED: ROCURONIUM 10 MG/ML (5 ML VIAL) IV ONE (15:52)
[2022-11-18] MEDS ORDERED: MIDAZOLAM 2 MG/2 ML VIAL ONE (15:52)
[2022-11-18] MEDS ORDERED: GLYCOPYRROLATE 0.2 MG/ML 2 ML VIAL ONE (15:52)
[2022-11-18] MEDS ORDERED: ONDANSETRON 4 MG/2 ML VIAL ONE (15:52)
[2022-11-18] MEDS ORDERED: SODIUM CHLORIDE 0.9% 100 ML with ceFAZolin 2,000 MG IV ONE ×2 (16:32)
[2022-11-18] MEDS ORDERED: LACTATED RINGERS 1,000 ML IV ONE (17:04)
[2022-11-18] MEDS ORDERED: HYDROmorphone 0.5 MG/0.5 ML SYRINGE IVP ONE ×2 (17:37→17:48)
[2022-11-18 17:50] LABS: Glucose,Whole Blood 104 mg/dL (70-110)
--- NOTE | 2022-11-18 18:01 | FL ---
Intraoperative/procedural fluoroscopic services were provided. Total fluoroscopy time is 1 minute 42 seconds with a total of 4 submitted images to PACS. Please see the operative/procedural note for furt her details.
[2022-11-18] MEDS: ASPIRIN 81 MG PO SCH (22:30)
[2022-11-18] MEDS: SENNOSIDES-DOCUSATE SODIUM 1 EACH TAB PO SCH (22:30)
--- NOTE | 2022-11-18 23:52 | OP ---
OPERATIVE REPORT PREOPERATIVE DIAGNOSIS: Left subtrochanteric femur fracture. POSTOPERATIVE DIAGNOSIS: Left subtrochanteric femur fracture. PROCEDURE PERFORMED: Closed reduction with intramedullary hip screw fixation for a left subtrochanteric femur fracture. COPPER PLATE PRINTER: Dandre Cardoza PA-C ANESTHESIA: General endotracheal. ESTIMATED BLOOD LOSS: 75 mL. TOURNIQUET: None. DRAINS: None. COMPLICATIONS: None apparent. DISPOSITION: Postanesthesia care unit. INDICATIONS: Debra is a very pleasant 52-year-old female, who injured her left hip yesterday after she fell. She apparently fell asleep while going to the bathroom in the middle of the night and fell off the toilet onto her left hip. She was brought via ambulance to the [facility]. Workup including x-rays revealed a left subtrochanteric femur fracture. She was admitted to my service. 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 She is an independent ambulator. Recommendation was for intramedullary hip screw fixation for her left subtrochanteric femur fracture. The risks of procedure were discussed with her in detail. These risks include, but are not limited to risk of infection, nerve damage, bleeding, pain, and a small risk of deep vein thrombosis, which could lead to fatal pulmonary embolism. Further risks include hardware irritation and failure of the fracture to heal. Both of these may necessitate further operative procedures. All of her questions with regard to the risks of procedure were answered to her satisfaction. An appropriate informed consent was obtained. DESCRIPTION OF THE PROCEDURE: The patient was identified in preoperative holding area. Surgical site was marked by both the patient and myself. She was given 2 g of Ancef IV for prophylactic purposes. She was then transported to the operative suite. She was placed supine on the operating room table. A general anesthetic was then administered, and dosed per the Anesthesia Department without apparent complication. She was then placed onto the fracture table, well-padded in preparation for surgery. Fluoroscopy was then brought in. The fracture was reduced with traction and rotation. When the fracture was reduced as anatomically as possible, we proceeded. The patient's left lower extremity was then prepped and draped in the usual sterile fashion. A standard surgical pause was undertaken to ensure that we were operating the correct site and that appropriate preoperative antibiotics were given. All staff in room were in agreement and we proceeded. Fluoroscopy was brought in. The tip of the greater trochanter was identified. An approximate 3 to 4 cm incision starting at the tip of the greater trochanter extending proximally in line with the shaft of the femur was then made with a 10 blade scalpel. Dissection was carried down sharply to the tensor fascia. The tensor fascia was then incised in line with the incision. The threaded guide pin and the starting awl were utilized to gain entrance to the proximal femur. The guide pin was placed at the medial aspect of the tip of the greater trochanter. It was then advanced distally down the center of the femur. This placement was confirmed with fluoroscopic imaging. I then utilized a starting reamer to gain access to the proximal femur. The threaded guide pin was then removed, and the ball-tipped guidewire was then placed through the proximal opening hole in the femur and then down the shaft of the femur. Again, this placement was confirmed with fluoroscopic imaging. I then measured for length. Given it was a subtrochanteric fracture of the femur, I did decide to use a long cephalomedullary nail. I then measured for length of 400 mm nail was deemed appropriate. I then reamed the diaphysis of the femur. I started with a 9 mm reamer and incrementally increased up until 13 mm reamers as to accept an 11 mm nail. I then had the [employer] footwear sales representative to open an 11 mm x 125 degree by 400 mm long Gamma nail. This was assembled onto the networking administrator on the back table. The long Gamma nail was then inserted over the ball-tipped guidewire and down the shaft of the femur. The ball-tipped guidewire was removed. Placement of the nail was confirmed with fluoroscopic imaging throughout its placement. I then proceeded with placement of the hip screw. A second small incision was made on the lateral thigh. The threaded guide pin was then advanced through the nail into the center of the femoral head on both AP and lateral views. The tip-apex distance was appropriate. I measured for length of 105 mm partially-threaded cannulated hip screw was chosen. The reamer was set at 105 mm. The threaded guide pin was over-reamed under fluoroscopic imaging. The footwear sales representative opened a Gely 105 mm cannulated partially-threaded hip screw. This was then inserted over the threaded guide pin deep in the center of the femoral head. Her bone quality was excellent. The screw had an excellent purchase in bone. The tip-apex distance was appropriate after the screw was fully seated. The set screw was then tightened fully as to lock the proximal screw. Traction was then let off the femur as to compress at the fracture site as much as possible. Again, I assessed for rotation of the distal femur. The toes were pointing straight ahead. The rotation of the femur was appropriate. When I was satisfied with rotation and the compression of the fracture site, we proceeded with locking the nail distally. I then positioned the image intensifier in such a way as to provide perfect circles at the distal fracture site. I then placed a 5.0 mm x 50 mm distal locking screw, which was placed through the nail and engaged both cortices of the distal femur. Again, this was confirmed with fluoroscopic imaging. At this point, no further work was deemed necessary. The fracture was reduced nicely and it was compressed as much as possible. The hip screw was placed through the nail into the center of the femoral head on both AP and lateral views. The tip-apex distance was appropriate. The rotation of the left femur was evaluated and deemed appropriate. The distal locking screw was then placed through the distal oblong hole of the nail and was of appropriate length. At this point in time, no further work was deemed necessary. The 3 wounds were thoroughly irrigated with sterile saline solution with antibiotic added. The tensor fascia was closed with 0 Vicryl interrupted suture. The subcutaneous tissue was closed with 2-0 Vicryl interrupted suture, and the skin was closed with stainless steel adelina. Sterile compressive dressings were applied. All sponge and needle counts were deemed correct prior to closure. The patient tolerated the procedure without apparent complication. She was transferred to the recovery room in stable condition. MMODL / IJN: [id number] /
[2022-11-19] MEDS: HYDROmorphone 1 MG/ML 1 ML SYRINGE IVP PRN ×2 (02:17→22:23)
[2022-11-19] MEDS: HYDROcodone/APAP 10-325MG 1 EACH TAB PO PRN ×3 (04:49→18:43)
[2022-11-19] MEDS: diazePAM 5 MG TAB PO PRN ×2 (04:50→18:43)
[2022-11-19] MEDS: IPRATROPIUM-ALBUTEROL 3 ML NEB INHALATION SCH ×4 (07:47→20:51)
[2022-11-19] MEDS: HYDROmorphone 0.5 MG/0.5 ML SYRINGE IVP PRN ×2 (07:57→13:35)
[2022-11-19] MEDS: buPROPion XL 150 MG TAB.ER.24H PO SCH (07:58)
[2022-11-19] MEDS: ASPIRIN 81 MG PO SCH ×2 (07:58→20:23)
[2022-11-19] MEDS: FLUoxetine HCL 20 MG CAP PO SCH (07:58)
[2022-11-19 08:55] LABS: Basophils # (A) 0.01 X 10*3/uL (0.00-0.10); Basophils % (A) 0.1 %; Eosinophils # (A) 0 X 10*3/uL (0.04-0.35); Eosinophils % (A) 0 %; HCT 35.3 % (37.2-46.3); HGB 10.9 g/dL (12.0-15.0); Immature Grans, Automated 0.5 %; Lymphocytes # (A) 0.37 X 10*3/uL (0.90-5.00); Lymphocytes % (A) 3.8 %; MCH 29.7 pg (27.0-32.0); MCHC 30.9 g/dL (32.0-37.0); MCV 96.2 fL (80.0-97.0); Mean Platelet Volume 9.5 fL (9.5-12.2); Monocytes # (A) 0.68 X 10*3/uL (0.20-1.00); NRBC Per 100 WBC 0 /100 WBCS (0.0-0.0); Neutrophils # (A) 8.58 X 10*3/uL (1.80-7.70); Neutrophils % (A) 88.6 %; Platelet Count 222 X 10*3/uL (140-440); RBC 3.67 X 10*6/uL (4.10-5.20); RDW 12.7 % (11.5-14.5); WBC 9.69 X 10*3/uL (4.50-10.00)
[2022-11-19] MEDS: CALCIUM CARBONATE 500 MG CHEWABLE PO PRN ×2 (10:37→20:23)
--- NOTE | 2022-11-19 11:33 | P.PN ---
Subjective Progress Note Date: 11/19/22 Patient is a 52-year-old female with a history of asthma, tobacco abuse, and prior MRSA infection who presented to the ER after a fall off the toilet. She was subsequently been admitted to orthopedic surgery and we were asked to consult for medical management and preoperative evaluation. She underwent IM nailing on 11/18/22. Seen and examined at bedside. She is up in the chair. It was very difficult for her to get to the chair. She states pain is well controlled at this time. Denies any chest pain or shortness of breath. 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 General: nontoxic, no distress, appears at stated age Derm: warm, dry Head: atraumatic, normocephalic, symmetric Eyes: EOMI, no lid lag, anicteric sclera Mouth: no lip lesion, mucus membranes moist Cardiovascular: S1S2 reg, no murmur, positive posterior tibial pulse bilateral, Lungs: Faint expiratory wheeze bilateral, ronchi left base, no rales , no accessory muscle use Ext: no gross muscle atrophy, no edema, no contractures Neuro: CN II-XI grossly intact, no focal neuro deficits Psych: Alert, oriented, appropriate affect Assessment/Plan: Patient is a 52-year-old female with a left femur fracture status post fall s/p IM nailing on 11/18/22. - PT/OT - pain control -Patient will need outpatient bone density testing for osteoporosis ABLA - anticipated outcome of surgery - follow CBC - no indication for transfusion at this time. Moderate persistent asthma, suboptimally controlled at baseline -Doubt acute exacerbation as patient states that breathing is at baseline. -continue scheduled DuoNeb's and when necessary albuterol -Patient would benefit from a maintenance inhaler or leukotriene agonist on discharge. Tobacco abuse - nicotine replacement - cessation Elevated blood pressure with out diagnosis of hypertension, resolved Alerted Manger of case management that patient would like [facility] [place] on discharge. Thank you for allowing us to participate in the care of this pleasant patient. Do not hesitate to contact us with questions. Someone can be reached from the [facility] hospitalist group all hours of the day at [phone] or via perfect serve. Active Medications Generic Name Dose Route Start Last Admin Trade Name Freq PRN Reason Stop Dose Admin Acetaminophen 650 mg 11/17/22 11:02 Acetaminophen Tab 325 Mg Tab PO Q4HR PRN Pain Scale 1 to 5 Hydrocodone Bitart/Acetaminophen 1 each 11/17/22 11:02 Hydrocodone/Apap 5-325mg 1 Each Tab PO Q6HR PRN Pain Scale 1 to 5 Hydrocodone Bitart/Acetaminophen 1 each 11/17/22 11:02 11/19/22 04:49 Hydrocodone/Apap 10-325mg 1 Each Tab PO 1 each Q6H PRN Administration Pain Scale 6 to 10 Albuterol Sulfate 2.5 mg 11/17/22 11:35 Albuterol Nebulized 2.5 Mg/3 Ml INHALATION RT-QID PRN Shortness Of Breath Or Wheezing Albuterol/Ipratropium 3 ml 11/17/22 12:00 11/19/22 11:28 Ipratropium-Albuterol 3 Ml Neb INHALATION 3 ml RT-QID JAYSHREE Administration Aspirin 81 mg 11/18/22 21:00 11/19/22 07:58 Aspirin 81 Mg PO 81 mg BID JAYSHREE Administration Bisacodyl 10 mg 11/17/22 11:02 Bisacodyl 10 Mg Supp RECTAL DAILY PRN Constipation Bupropion HCl 150 mg 11/17/22 11:45 11/19/22 07:58 Bupropion Xl 150 Mg Tab.Er.24h PO 150 mg DAILY JAYSHREE Administration Calcium Carbonate/Glycine 500 mg 11/19/22 09:14 11/19/22 10:37 Calcium Carbonate 500 Mg Chewable PO 500 mg TID PRN Administration Heartburn Diazepam 2.5 mg 11/17/22 11:02 11/19/22 04:50 Diazepam 5 Mg Tab PO 2.5 mg Q8HR PRN Administration Mild Spasms Fluoxetine HCl 60 mg 11/17/22 11:45 11/19/22 07:58 Fluoxetine Hcl 20 Mg Cap PO 60 mg DAILY JAYSHREE Administration Hydromorphone HCl 0.5 mg 11/17/22 04:33 11/19/22 07:57 Hydromorphone 0.5 Mg/0.5 Ml Syringe IVP 0.5 mg Q3HR PRN Administration Moderate Pain (Scale 4 to 6) Hydromorphone HCl 1 mg 11/17/22 04:33 11/19/22 02:17 Hydromorphone 1 Mg/Ml 1 Ml Syringe IVP 1 mg Q3HR PRN Administration Severe Pain (Scale 7 to 10) Sodium Chloride 1,000 mls @ 75 mls/hr 11/17/22 04:45 11/18/22 09:39 Saline 0.9% IV 75 mls/hr .[id number] JAYSHREE Administration Magnesium Hydroxide 2,400 mg 11/17/22 11:02 Magnesium Hydroxide 2,400 Mg/10 Ml Cup PO DAILY PRN Constipation Multivitamins 1 each 11/18/22 12:00 11/18/22 09:56 Multivitamins, Thera 1 Each Tab PO Not Given DAILY@1200 JAYSHREE Naloxone HCl 0.2 mg 11/17/22 04:33 Naloxone 0.4 Mg/Ml 1 Ml Vial IV Q2M PRN Opioid Reversal Nicotine Polacrilex 2 mg 11/17/22 11:47 Nicotine Gum (Polacrilex) 2 Mg Gum BUCCAL Q4HR PRN Nicotine Cravings Ondansetron HCl 4 mg 11/17/22 04:33 Ondansetron 4 Mg/2 Ml Vial IVP Q8HR PRN Nausea And Vomiting Senna/Docusate Sodium 2 each 11/17/22 21:00 11/18/22 22:30 Sennosides-Docusate Sodium 1 Each Tab PO 2 each HS JAYSHREE Administration Sodium Biphosphate/Sodium Phosphate 133 ml 11/17/22 11:02 Na Phos,M-B/Na Phos,Di-Ba 133 Ml Enema RECTAL DAILY PRN Constipation Temazepam 15 mg 11/17/22 11:02 Temazepam 15 Mg Cap PO HS PRN Insomnia Tramadol HCl 50 mg 11/17/22 11:02 Tramadol 50 Mg Tab PO Q6HR PRN Pain Scale 1 to 5 Objective - Vital Signs Vital signs: Vital Signs Temp 98.7 F 11/19/22 07:00 Pulse 84 11/19/22 07:57 Resp 16 11/19/22 07:00 BP 121/79 11/19/22 07:00 Pulse Ox 96 11/19/22 07:47 FiO2 Intake & Output 11/18/22 11/19/22 11/19/22 18:59 06:59 18:59 Intake Total 1400 Output Total 885 850 Balance 515 -850 Intake: IV 1400 Output: Urine 810 850 Estimated Blood Loss 75 Other: Voiding Method Indwelling Catheter Indwelling Catheter Indwelling Catheter - Labs CBC & Chem 7: 11/19/22 04:31 11/17/22 03:41 Labs: Abnormal Lab Results - Last 24 Hours (Table) 11/19/22 Range/Units 04:31 RBC 3.67 L (4.10-5.20) X 10*6/uL Hgb 10.9 L (12.0-15.0) g/dL Hct 35.3 L (37.2-46.3) % MCHC 30.9 L (32.0-37.0) g/dL Immature Gran # 0.05 H (0.00-0.04) X 10*3/uL Neutrophils # 8.58 H (1.80-7.70) X 10*3/uL Lymphocytes # 0.37 L (0.90-5.00) X 10*3/uL Eosinophils # 0 L (0.04-0.35) X 10*3/uL
[2022-11-19] MEDS: SODIUM CHLORIDE 0.9% 1,000 ML IV SCH (11:49)
[2022-11-19] MEDS: MULTIVITAMINS, THERA 1 EACH TAB PO SCH (11:51)
[2022-11-19] MEDS: SENNOSIDES-DOCUSATE SODIUM 1 EACH TAB PO SCH (20:23)
[2022-11-19] MEDS ORDERED: FAMOTIDINE 20 MG TAB PO STA (22:07)
[2022-11-19] MEDS ORDERED: PANTOPRAZOLE 40 MG TABLET PO STA (22:07)
[2022-11-20] MEDS: SODIUM CHLORIDE 0.9% 1,000 ML IV SCH ×2 (02:53→13:54)
[2022-11-20] MEDS: HYDROcodone/APAP 10-325MG 1 EACH TAB PO PRN ×4 (06:48→20:41)
[2022-11-20] MEDS: diazePAM 5 MG TAB PO PRN ×2 (06:49→15:33)
[2022-11-20] MEDS: IPRATROPIUM-ALBUTEROL 3 ML NEB INHALATION SCH ×4 (08:23→18:31)
[2022-11-20] MEDS: FLUoxetine HCL 20 MG CAP PO SCH (08:37)
[2022-11-20] MEDS: ASPIRIN 81 MG PO SCH ×2 (08:38→20:41)
[2022-11-20] MEDS: buPROPion XL 150 MG TAB.ER.24H PO SCH (08:38)
[2022-11-20 09:07] LABS: Basophils # (A) 0.03 X 10*3/uL (0.00-0.10); Basophils % (A) 0.4 %; Eosinophils # (A) 0.07 X 10*3/uL (0.04-0.35); Eosinophils % (A) 0.9 %; HCT 28.7 % (37.2-46.3); HGB 9.1 g/dL (12.0-15.0); Immature Grans, Automated 0.6 %; Lymphocytes # (A) 1.56 X 10*3/uL (0.90-5.00); Lymphocytes % (A) 19.4 %; MCH 29.4 pg (27.0-32.0); MCHC 31.7 g/dL (32.0-37.0); MCV 92.9 fL (80.0-97.0); Mean Platelet Volume 9.2 fL (9.5-12.2); Monocytes # (A) 0.65 X 10*3/uL (0.20-1.00); Monocytes % (A) 8.1 %; NRBC Per 100 WBC 0 /100 WBCS (0.0-0.0); Neutrophils # (A) 5.68 X 10*3/uL (1.80-7.70); Neutrophils % (A) 70.6 %; Platelet Count 209 X 10*3/uL (140-440); RBC 3.09 X 10*6/uL (4.10-5.20); RDW 13.1 % (11.5-14.5); WBC 8.04 X 10*3/uL (4.50-10.00)
--- NOTE | 2022-11-20 10:40 | P.PN ---
Subjective Progress Note Date: 11/20/22 Patient is a 52-year-old female with a history of asthma, tobacco abuse, and prior MRSA infection who presented to the ER after a fall off the toilet. She was subsequently been admitted to orthopedic surgery and we were asked to consult for medical management and preoperative evaluation. She underwent IM nailing on 11/18/22. Seen and examined at bedside. She continues to have some pain, no nausea, no vomiting. Eating and drinking well, heart burn resolved. General: nontoxic, no distress, appears at stated age Derm: warm, dry Head: atraumatic, normocephalic, symmetric Eyes: EOMI, no lid lag, anicteric sclera Mouth: no lip lesion, mucus membranes moist Cardiovascular: S1S2 reg, no murmur, positive posterior tibial pulse bilateral, Lungs: Faint expiratory wheeze bilateral, ronchi left base, no rales , no accessory muscle use Ext: no gross muscle atrophy, no edema, no contractures Neuro: CN II-XI grossly intact, no focal neuro deficits Psych: Alert, oriented, appropriate affect Assessment/Plan: Patient is a 52-year-old female with a left femur fracture status post fall s/p IM nailing on 11/18/22. - PT/OT - pain control -Patient will need outpatient bone density testing for osteoporosis ABLA- Hgb 9.1, large drop in 24 houts - start oral iron therapy - anticipated outcome of surgery - follow CBC - no indication for transfusion at this time. Moderate persistent asthma, suboptimally controlled at baseline -Doubt acute exacerbation as patient states that breathing is at baseline. -continue scheduled DuoNeb's and when necessary albuterol - add LABA/Steroid inhaler to discharge. Tobacco abuse - nicotine replacement - cessation Elevated blood pressure with out diagnosis of hypertension, resolved Anticipate discharge today or tomorrow to [facility] Thank you for allowing us to participate in the care of this pleasant patient. Do not hesitate to contact us with questions. Someone can be reached from the [facility] hospitalist group all hours of the day at [phone] or via perfect serve. Active Medications Generic Name Dose Route Start Last Admin Trade Name Freq PRN Reason Stop Dose Admin Acetaminophen 650 mg 11/17/22 11:02 Acetaminophen Tab 325 Mg Tab PO Q4HR PRN Pain Scale 1 to 5 Hydrocodone Bitart/Acetaminophen 1 each 11/17/22 11:02 Hydrocodone/Apap 5-325mg 1 Each Tab PO Q6HR PRN Pain Scale 1 to 5 Hydrocodone Bitart/Acetaminophen 1 each 11/20/22 08:57 Hydrocodone/Apap 10-325mg 1 Each Tab PO Q4H PRN Pain Scale 6 to 10 Albuterol Sulfate 2.5 mg 11/17/22 11:35 Albuterol Nebulized 2.5 Mg/3 Ml INHALATION RT-QID PRN Shortness Of Breath Or Wheezing Albuterol/Ipratropium 3 ml 11/17/22 12:00 11/20/22 08:23 Ipratropium-Albuterol 3 Ml Neb INHALATION 3 ml RT-QID JAYSHREE Administration Aspirin 81 mg 11/18/22 21:00 11/20/22 08:38 Aspirin 81 Mg PO 81 mg BID JAYSHREE Administration Bisacodyl 10 mg 11/17/22 11:02 Bisacodyl 10 Mg Supp RECTAL DAILY PRN Constipation Bupropion HCl 150 mg 11/17/22 11:45 11/20/22 08:38 Bupropion Xl 150 Mg Tab.Er.24h PO 150 mg DAILY JAYSHREE Administration Calcium Carbonate/Glycine 500 mg 11/19/22 09:14 11/19/22 20:23 Calcium Carbonate 500 Mg Chewable PO 500 mg TID PRN Administration Heartburn Diazepam 2.5 mg 11/17/22 11:02 11/20/22 06:49 Diazepam 5 Mg Tab PO 2.5 mg Q8HR PRN Administration Mild Spasms Fluoxetine HCl 60 mg 11/17/22 11:45 11/20/22 08:37 Fluoxetine Hcl 20 Mg Cap PO 60 mg DAILY JAYSHREE Administration Hydromorphone HCl 0.5 mg 11/17/22 04:33 11/19/22 13:35 Hydromorphone 0.5 Mg/0.5 Ml Syringe IVP 0.5 mg Q3HR PRN Administration Moderate Pain (Scale 4 to 6) Hydromorphone HCl 1 mg 11/17/22 04:33 11/19/22 22:23 Hydromorphone 1 Mg/Ml 1 Ml Syringe IVP 1 mg Q3HR PRN Administration Severe Pain (Scale 7 to 10) Sodium Chloride 1,000 mls @ 75 mls/hr 11/17/22 04:45 11/20/22 02:53 Saline 0.9% IV Not Given .[id number] JAYSHREE Magnesium Hydroxide 2,400 mg 11/17/22 11:02 Magnesium Hydroxide 2,400 Mg/10 Ml Cup PO DAILY PRN Constipation Multivitamins 1 each 11/18/22 12:00 11/19/22 11:51 Multivitamins, Thera 1 Each Tab PO 1 each DAILY@1200 JAYSHREE Administration Naloxone HCl 0.2 mg 11/17/22 04:33 Naloxone 0.4 Mg/Ml 1 Ml Vial IV Q2M PRN Opioid Reversal Nicotine Polacrilex 2 mg 11/17/22 11:47 Nicotine Gum (Polacrilex) 2 Mg Gum BUCCAL Q4HR PRN Nicotine Cravings Ondansetron HCl 4 mg 11/17/22 04:33 Ondansetron 4 Mg/2 Ml Vial IVP Q8HR PRN Nausea And Vomiting Senna/Docusate Sodium 2 each 11/17/22 21:00 11/19/22 20:23 Sennosides-Docusate Sodium 1 Each Tab PO 2 each HS JAYSHREE Administration Sodium Biphosphate/Sodium Phosphate 133 ml 11/17/22 11:02 Na Phos,M-B/Na Phos,Di-Ba 133 Ml Enema RECTAL DAILY PRN Constipation Temazepam 15 mg 11/17/22 11:02 Temazepam 15 Mg Cap PO HS PRN Insomnia Tramadol HCl 50 mg 11/17/22 11:02 Tramadol 50 Mg Tab PO Q6HR PRN Pain Scale 1 to 5 Objective - Vital Signs Vital signs: Vital Signs Temp 98.2 F 11/20/22 07:46 Pulse 80 11/20/22 08:35 Resp 20 11/20/22 07:46 BP 141/85 11/20/22 07:46 Pulse Ox 99 11/20/22 07:46 FiO2 Intake & Output 11/19/22 11/20/22 11/20/22 18:59 06:59 18:59 Intake Total 1080 300 Output Total 650 750 Balance 430 -450 Intake: Oral 1080 300 Output: Urine 650 750 Other: Voiding Method Indwelling Catheter Indwelling Catheter Indwelling Catheter - Labs CBC & Chem 7: 11/20/22 04:52 11/17/22 03:41 Labs: Abnormal Lab Results - Last 24 Hours (Table) 11/20/22 Range/Units 04:52 RBC 3.09 L (4.10-5.20) X 10*6/uL Hgb 9.1 L (12.0-15.0) g/dL Hct 28.7 L (37.2-46.3) % MCHC 31.7 L (32.0-37.0) g/dL MPV 9.2 L (9.5-12.2) fL Immature Gran # 0.05 H (0.00-0.04) X 10*3/uL
[2022-11-20] MEDS: MULTIVITAMINS, THERA 1 EACH TAB PO SCH (11:46)
--- NOTE | 2022-11-20 15:18 | P.PN ---
Subjective Progress Note Date: 11/19/22 Principal diagnosis: S/P gamma nail left hip fracture Patient is seen at bedside this morning. SHe is postop day #1 from Left IM hip screw gamma nail for left IT fracture. SHe has pain at the surgical site as expected but denies any new complaints. SHe denies numbness, tingling or calf pain. Review of systems is negative for fever, chills, chest pain, shortness of breath or otherPOD #1 Objective - Vital Signs Vital signs: Vital Signs Temp 98.2 F 11/19/22 14:00 Pulse 80 11/19/22 21:03 Resp 16 11/19/22 14:00 BP 109/71 11/19/22 14:00 Pulse Ox 95 11/19/22 14:00 FiO2 Intake & Output 11/19/22 11/19/22 11/20/22 06:59 18:59 06:59 Intake Total 1080 Output Total 850 650 Balance -850 430 Intake: Oral 1080 Output: Urine 850 650 Other: Voiding Method Indwelling Catheter Indwelling Catheter - Exam Inspection reveals a benign surgical wound. There is no active bleeding or drainage. Neurovascular status is intact throughout the lower extremity with motor and sensation fully intact. Calf is soft and nontender. 2+ dorsalis pedis pulse and less than 2 second cap refill is present. - Constitutional General appearance: Present: no acute distress - Labs CBC & Chem 7: 11/20/22 04:52 11/17/22 03:41 Labs: Abnormal Lab Results - Last 24 Hours (Table) 11/19/22 Range/Units 04:31 RBC 3.67 L (4.10-5.20) X 10*6/uL Hgb 10.9 L (12.0-15.0) g/dL Hct 35.3 L (37.2-46.3) % MCHC 30.9 L (32.0-37.0) g/dL Immature Gran # 0.05 H (0.00-0.04) X 10*3/uL Neutrophils # 8.58 H (1.80-7.70) X 10*3/uL Lymphocytes # 0.37 L (0.90-5.00) X 10*3/uL Eosinophils # 0 L (0.04-0.35) X 10*3/uL Assessment and Plan (1) Closed left hip fracture Narrative/Plan: She will continue with routine postop orthopedic protocol including pain management, wound care, PT, DVT prophylaxis and medical management. Expect that she will transfer to [facility] vs home tomorrow Current Visit: Yes Status: Acute Code(s): S72.002A - FRACTURE OF UNSP PART OF NECK OF LEFT FEMUR, INIT SNOMED Code(s): 149617754 Time with Patient: Less than 30
--- NOTE | 2022-11-20 15:23 | P.PN ---
Subjective Progress Note Date: 11/20/22 Principal diagnosis: S/P gamma nail left hip fracture Patient is seen at bedside this morning. SHe is postop day #2 from Left IM hip screw gamma nail for left IT fracture. SHe has pain at the surgical site as expected but denies any new complaints. SHe denies numbness, tingling or calf pain. Review of systems is negative for fever, chills, chest pain, shortness of breath or other Objective - Vital Signs Vital signs: Vital Signs Temp 98.2 F 11/20/22 13:45 Pulse 95 11/20/22 13:45 Resp 16 11/20/22 13:45 BP 126/78 11/20/22 13:45 Pulse Ox 96 11/20/22 13:45 FiO2 Intake & Output 11/19/22 11/20/22 11/20/22 18:59 06:59 18:59 Intake Total 1080 300 Output Total 650 750 Balance 430 -450 Intake: Oral 1080 300 Output: Urine 650 750 Other: Voiding Method Indwelling Catheter Indwelling Catheter Indwelling Catheter - Exam Inspection reveals a benign surgical wound. There is no active bleeding or rosa maria inage. Neurovascular status is intact throughout the lower extremity with motor and sensation fully intact. Calf is soft and nontender. 2+ dorsalis pedis pulse and less than 2 second cap refill is present. - Constitutional General appearance: Present: no acute distress - Labs CBC & Chem 7: 11/20/22 04:52 11/17/22 03:41 Labs: Abnormal Lab Results - Last 24 Hours (Table) 11/20/22 Range/Units 04:52 RBC 3.09 L (4.10-5.20) X 10*6/uL Hgb 9.1 L (12.0-15.0) g/dL Hct 28.7 L (37.2-46.3) % MCHC 31.7 L (32.0-37.0) g/dL MPV 9.2 L (9.5-12.2) fL Immature Gran # 0.05 H (0.00-0.04) X 10*3/uL Assessment and Plan (1) Closed left hip fracture Narrative/Plan: She will continue with routine postop orthopedic protocol including pain management, wound care, PT, DVT prophylaxis and medical management. [facility] Current Visit: Yes Status: Acute Code(s): S72.002A - FRACTURE OF UNSP PART OF NECK OF LEFT FEMUR, INIT SNOMED Code(s): 793354362 Time with Patient: Less than 30
--- NOTE | 2022-11-20 16:11 | P.CONS ---
History of Present Illness - Chief Complaint Walking difficulty - History of Present Illness I had the opportunity to see patient for inpatient rehab consultation today. Patient admitted to Dr. Montalvo November 17 history of fall at home and left hip pain. X-ray demonstrated IT fracture. Seen by Dr. Funez and on November 18 underwent closed reduction and IM screw. CT scan of C-spine demonstrates mild DDD. Computed tomography scan of head demonstrates mild white matter change. Chest x-ray negative. It started therapies. PT reports minimal assist bed mobility, transfer, gait 5 feet with roller walker. OT reports independent with feeding, minimal assistance for grooming and upper dressing, total assistance for lower dressing and toileting and moderate assistance for bathing. 2 person moderate assistance functional mobility and toilet transfer. Previous functional history as elicited from patient: 52-year-old right-handed white female who is lives in one form with basement, with . They share the cooking and patient does most of the laundry. Both drive. Patient and both work. Patient describes independent with standing shower, gait without device. PCP Dr. Larson. States smokes half pack per day and denies alcohol. Review of Systems Review of systems: ENT: Denies sneezes or discharge. Eyes: Denies discharge or photophobia. Cardiac: Denies chest pain or palpitation. Pulmonary: Denies cough or shortness of breath. Breast: Denies discharge or lumps. Gastrointestinal: Denies nausea, emesis, constipation, diarrhea. Genitourinary: Denies discharge or frequency. Musculoskeletal: Left hip and thigh discomfort. Neurologic: Denies motor or sensory change. Endocrine: Denies shakes or sweats. Oncology: Denies cancers. Dermatologic: Denies rash, itching, pruritus. ALLERGY/immunology: Denies sneezes, rashes. Past Medical History Past Medical History: Asthma Additional Past Medical History / Comment(s): Compression fractures in lower spine, depression History of Any Multi-Drug Resistant Organisms: MRSA Year Discovered:: 2010 MDRO Source:: lt ankle Past Surgical History: Section, Orthopedic Surgery Additional Past Surgical History / Comment(s): lt foot- bone spur, rt ovarian tumor removed, 2 right breast lumpectomy Past Psychological History: Depression Smoking Status: Current every day smoker (1 PPD) Past Alcohol Use History: None Reported, Rare Past Drug Use History: None Reported - Past Family History Father Additional Family Medical History / Comment(s): CAD with SD and CABG in early 60 Medications and Allergies Home Medications Medication Instructions Recorded Confirmed Type Albuterol Inhaler [Ventolin Hfa 2 puff INHALATION RT-QID PRN 11/17/22 11/17/22 History Inhaler] FLUoxetine HCL 60 mg PO DAILY 11/17/22 11/17/22 History buPROPion XL [Wellbutrin XL] 150 mg PO DAILY 11/17/22 11/17/22 History traZODone HCL [Desyrel] 50 mg PO HS PRN 11/17/22 11/17/22 History Aspirin [Adult Low Dose Aspirin EC] 81 mg PO BID #60 tab 11/19/22 Rx Docusate [Colace] 100 mg PO BID #60 capsule 11/19/22 Rx HYDROcodone/APAP 7.5-325MG [[place] 1 - 2 each PO Q6HR PRN #42 tab 11/19/22 Rx 7.5-325] Ferrous Sulfate [Slow Fe] 142 mg PO DAILY #30 tab 11/20/22 Rx Fluticasone Propion/Salmeterol 1 inhalation PO BID #1 each 11/20/22 Rx [Advair 250-50 Diskus] Allergies Allergy/AdvReac Type Severity Reaction Status Date / Time Penicillins Allergy Rash/Hives Verified 11/18/22 15:28 Sulfa (Sulfonamide Allergy Rash/Hives Verified 11/18/22 15:28 Antibiotics) Physical Exam Vitals: Vital Signs Temp Pulse Pulse Resp BP Pulse Ox 11/20/22 15:51 90 11/20/22 15:42 81 96 11/20/22 13:45 98.2 F 95 16 126/78 96 11/20/22 11:57 88 11/20/22 11:47 84 11/20/22 08:35 80 11/20/22 08:23 80 11/20/22 07:46 98.2 F 81 20 141/85 99 11/20/22 02:00 98.3 F 74 17 117/78 95 11/19/22 21:03 80 11/19/22 20:51 80 11/19/22 20:00 99.1 F 85 17 116/76 96 11/19/22 19:55 85 17 Intake and Output 11/20/22 11/20/22 11/20/22 06:59 14:59 22:59 Intake Total 300 Output Total 750 Balance -450 Intake: Oral 300 Output: Urine 750 Other: Voiding Method Indwelling Catheter Skin: Good color, texture, turgor. General: Medium build and comfortable appearance. Head: Normocephalic, atraumatic. Eyes: Symmetric. Pupils equal round. Ears: Symmetric. Hearing within normal limits. Mouth: Clear. Neck: Supple. Carotid without bruit. Cardiac: Regular rate and rhythm. Lungs: Clear anteriorly and posteriorly. Abdomen: Soft active nontender. Extremities: Normal tone.Discomfort left hip and thigh. Surgical dressing lateral proximal and distal left thigh. No redness or discharge. Neurological: Mental status: Alert, cooperative, pleasant. Cranial nerves: Symmetric facial tone and trapezius. Motor: Normal strength and isolation Both arms and right leg. Left leg with marked giveaway weakness secondary to discomfort. Sensation: Intact throughout. DTRs: Symmetric and equal throughout. Mobility: Did not attempt to sit or stand on my own. Results CBC & Chem 7: 11/20/22 04:52 11/17/22 03:41 Labs: Abnormal Lab Results - Last 24 Hours (Table) 11/20/22 Range/Units 04:52 RBC 3.09 L (4.10-5.20) X 10*6/uL Hgb 9.1 L (12.0-15.0) g/dL Hct 28.7 L (37.2-46.3) % MCHC 31.7 L (32.0-37.0) g/dL MPV 9.2 L (9.5-12.2) fL Immature Gran # 0.05 H (0.00-0.04) X 10*3/uL Assessment and Plan (1) Closed left hip fracture Current Visit: Yes Status: Acute Code(s): S72.002A - FRACTURE OF UNSP PART OF NECK OF LEFT FEMUR, INIT SNOMED Code(s): 657850803 (2) Fall Current Visit: Yes Status: Acute Code(s): W19.XXXA - UNSPECIFIED FALL, INITIAL ENCOUNTER SNOMED Code(s): 3805681 Plan: Comments and plan: Patient reports to me that she had hoped for [facility] placement b ut this was denied by insurance. She is now hopeful for IP R admission. Patient demonstrated safety concerns with the ability tolerate and benefit of therapy and would seem to be a good IP R candidate. With thus Overweight insurance approval.
[2022-11-20] MEDS: SENNOSIDES-DOCUSATE SODIUM 1 EACH TAB PO SCH (20:41)
[2022-11-21] MEDS: SODIUM CHLORIDE 0.9% 1,000 ML IV SCH ×2 (02:04→15:13)
[2022-11-21] MEDS: HYDROcodone/APAP 5-325MG 1 EACH TAB PO PRN (04:48)
[2022-11-21] MEDS: diazePAM 5 MG TAB PO PRN ×2 (04:49→12:42)
[2022-11-21] MEDS: buPROPion XL 150 MG TAB.ER.24H PO SCH (08:06)
[2022-11-21] MEDS: HYDROcodone/APAP 10-325MG 1 EACH TAB PO PRN ×3 (08:06→17:54)
[2022-11-21] MEDS: ASPIRIN 81 MG PO SCH ×2 (08:06→20:18)
[2022-11-21] MEDS: FLUoxetine HCL 20 MG CAP PO SCH (08:06)
[2022-11-21] MEDS: IPRATROPIUM-ALBUTEROL 3 ML NEB INHALATION SCH ×4 (08:38→19:57)
[2022-11-21 10:47] LABS: Basophils # (A) 0.04 X 10*3/uL (0.00-0.10); Basophils % (A) 0.6 %; Eosinophils # (A) 0.15 X 10*3/uL (0.04-0.35); Eosinophils % (A) 2.4 %; HCT 27.5 % (37.2-46.3); Immature Grans, Automated 1.1 %; Lymphocytes # (A) 1.02 X 10*3/uL (0.90-5.00); Lymphocytes % (A) 16.4 %; MCH 30.1 pg (27.0-32.0); MCHC 32.7 g/dL (32.0-37.0); Mean Platelet Volume 9.3 fL (9.5-12.2); Monocytes # (A) 0.51 X 10*3/uL (0.20-1.00); Monocytes % (A) 8.2 %; NRBC Per 100 WBC 0 /100 WBCS (0.0-0.0); Neutrophils # (A) 4.44 X 10*3/uL (1.80-7.70); Neutrophils % (A) 71.3 %; Platelet Count 200 X 10*3/uL (140-440); RBC 2.99 X 10*6/uL (4.10-5.20); RDW 13.2 % (11.5-14.5); WBC 6.23 X 10*3/uL (4.50-10.00)
[2022-11-21] MEDS: MULTIVITAMINS, THERA 1 EACH TAB PO SCH (12:41)
--- NOTE | 2022-11-21 13:10 | P.PN ---
Subjective Progress Note Date: 11/21/22 Principal diagnosis: S/P gamma nail left hip fracture Patient is seen at bedside this morning. SHe is postop day #3 from Left IM hip screw gamma nail for left IT fracture. SHe has pain at the surgical site as expected but denies any new complaints. SHe denies numbness, tingling or calf pain. Review of systems is negative for fever, chills, chest pain, shortness of breath or other Objective - Vital Signs Vital signs: Vital Signs Temp 98.4 F 11/21/22 08:00 Pulse 84 11/21/22 12:48 Resp 16 11/21/22 08:00 BP 150/85 11/21/22 08:00 Pulse Ox 98 11/21/22 08:00 FiO2 Intake & Output 11/20/22 11/21/22 11/21/22 18:59 06:59 18:59 Intake Total 480 Balance 480 Intake: Oral 480 Other: Voiding Method Indwelling Catheter Toilet Toilet # Voids 1 2 - Exam Inspection reveals a benign surgical wound. There is no active bleeding or drainage. Neurovascular status is intact throughout the lower extremity with mo tor and sensation fully intact. Calf is soft and nontender. 2+ dorsalis pedis pulse and less than 2 second cap refill is present. - Constitutional General appearance: Present: no acute distress - Labs CBC & Chem 7: 11/21/22 05:28 11/17/22 03:41 Labs: Abnormal Lab Results - Last 24 Hours (Table) 11/21/22 Range/Units 05:28 RBC 2.99 L (4.10-5.20) X 10*6/uL Hgb 9.0 L (12.0-15.0) g/dL Hct 27.5 L (37.2-46.3) % MPV 9.3 L (9.5-12.2) fL Immature Gran # 0.07 H (0.00-0.04) X 10*3/uL Assessment and Plan (1) Closed left hip fracture Narrative/Plan: She will continue with routine postop orthopedic protocol including pain management, wound care, PT, DVT prophylaxis and medical management. Expect that she will transfer to [facility] vs home in next 1-2 days Current Visit: Yes Status: Acute Code(s): S72.002A - FRACTURE OF UNSP PART OF NECK OF LEFT FEMUR, INIT SNOMED Code(s): 113633366 Time with Patient: Less than 30
--- NOTE | 2022-11-21 14:56 | P.PN ---
Subjective Progress Note Date: 11/21/22 No new complaints. Pending insurance auth prior to IPR placement. Gen: awake, alert HEENT: normocephalic, atraumatic, good hearing acuity, moist mucous membranes Resp: good air exchange, breathing comfortably with no accessory muscle use CVS: good distal perfusion x 4, GI: soft, NTTP, ND : no SPT, no CVAT, yoder catheter not present MSK: no pitting edema, no clubbing Neuro: non-focal, moving all extremities Psych: cooperative, euthymic mood Assessment/plan: Patient is a 52-year-old female with a left femur fracture status post fall s/p IM nailing on 11/18/22. - PT/OT - pain control -Patient will need outpatient bone density testing for osteoporosis ABLA- Hgb 9.1, large drop in 24 houts - start oral iron therapy - anticipated outcome of surgery - follow CBC - no indication for transfusion at this time. Moderate persistent asthma, suboptimally controlled at baseline -Doubt acute exacerbation as patient states that breathing is at baseline. -continue scheduled DuoNeb's and when necessary albuterol - add LABA/Steroid inhaler to discharge. Tobacco abuse - nicotine replacement - cessation Elevated blood pressure with out diagnosis of hypertension, resolved Anticipate discharge to IPR vs home with HH, but safest plan of care would be former Thank you for allowing us to participate in the care of this pleasant patient. Do not hesitate to contact us with questions. Someone can be reached from the [facility] hospitalist group all hours of the day at [phone] or via Reve[employer]. Objective - Vital Signs Vital signs: Vital Signs Temp 98.3 F 11/21/22 14:00 Pulse 81 11/21/22 14:00 Resp 15 11/21/22 14:00 BP 100/66 11/21/22 14:00 Pulse Ox 96 11/21/22 14:00 FiO2 Intake & Output 11/20/22 11/21/22 11/21/22 18:59 06:59 18:59 Intake Total 480 Balance 480 Intake: Oral 480 Other: Voiding Method Indwelling Catheter Toilet Toilet # Voids 1 2 1 # Bowel Movements 1 - Labs CBC & Chem 7: 11/21/22 05:28 11/17/22 03:41 Labs: Abnormal Lab Results - Last 24 Hours (Table) 11/21/22 Range/Units 05:28 RBC 2.99 L (4.10-5.20) X 10*6/uL Hgb 9.0 L (12.0-15.0) g/dL Hct 27.5 L (37.2-46.3) % MPV 9.3 L (9.5-12.2) fL Immature Gran # 0.07 H (0.00-0.04) X 10*3/uL
[2022-11-21] MEDS: SENNOSIDES-DOCUSATE SODIUM 1 EACH TAB PO SCH (20:19)
[2022-11-22] MEDS: HYDROcodone/APAP 5-325MG 1 EACH TAB PO PRN (01:29)
[2022-11-22] MEDS: SODIUM CHLORIDE 0.9% 1,000 ML IV SCH (06:32)
[2022-11-22 08:00] VITALS: RESP 16
[2022-11-22] MEDS: IPRATROPIUM-ALBUTEROL 3 ML NEB INHALATION SCH ×3 (08:37→16:14)
[2022-11-22] MEDS: ASPIRIN 81 MG PO SCH (09:03)
[2022-11-22] MEDS: HYDROcodone/APAP 10-325MG 1 EACH TAB PO PRN ×2 (09:03→15:06)
[2022-11-22] MEDS: FLUoxetine HCL 20 MG CAP PO SCH (09:03)
[2022-11-22] MEDS: buPROPion XL 150 MG TAB.ER.24H PO SCH (09:53)
[2022-11-22] MEDS: diazePAM 5 MG TAB PO PRN (09:53)
--- NOTE | 2022-11-22 10:17 | P.PN ---
Subjective Progress Note Date: 11/22/22 Principal diagnosis: S/P gamma nail left hip fracture Patient is seen at bedside this morning. SHe is postop day #4 from Left IM hip screw gamma nail for left IT fracture. SHe has pain at the surgical site as expected but denies any new complaints. SHe denies numbness, tingling or calf pain. Review of systems is negative for fever, chills, chest pain, shortness of breath or other Objective - Vital Signs Vital signs: Vital Signs Temp 98.1 F 11/22/22 07:59 Pulse 79 11/22/22 08:37 Resp 16 11/22/22 07:59 BP 117/78 11/22/22 07:59 Pulse Ox 97 11/22/22 08:38 FiO2 Intake & Output 11/21/22 11/22/22 11/22/22 18:59 06:59 18:59 Intake Total 1080 Balance 1080 Intake: Oral 1080 Other: Voiding Method Toilet Toilet Toilet # Voids 1 2 1 # Bowel Movements 1 - Exam Inspection reveals a benign surgical wound. There is no active bleeding or drainage. Neurovascular status is intact throughout the lower extremity with motor and sensation fully intact. Calf is soft and nontender. 2+ dorsalis pedis pulse and less than 2 second cap refill is present. - Constitutional General appearance: Present: no acute distress - Labs CBC & Chem 7: 11/21/22 05:28 11/17/22 03:41 Labs: Abnormal Lab Results - Last 24 Hours (Table) 11/21/22 Range/Units 05:28 RBC 2.99 L (4.10-5.20) X 10*6/uL Hgb 9.0 L (12.0-15.0) g/dL Hct 27.5 L (37.2-46.3) % MPV 9.3 L (9.5-12.2) fL Immature Gran # 0.07 H (0.00-0.04) X 10*3/uL Assessment and Plan (1) Closed left hip fracture Narrative/Plan: She will continue with routine postop orthopedic protocol including pain management, wound care, PT, DVT prophylaxis and medical management. Expect that she will transfer to [facility] vs home in next 1-2 days Current Visit: Yes Status: Acute Priority: Medium Code(s): S72.002A - FRACTURE OF UNSP PART OF NECK OF LEFT FEMUR, INIT SNOMED Code(s): 521340349 Time with Patient: Less than 30
[2022-11-22 11:17] VITALS: BMI 27.8
--- NOTE | 2022-11-22 11:38 | P.PN ---
Subjective Progress Note Date: 11/22/22 No new complaints. Pending insurance auth prior to IPR placement. Gen: awake, alert HEENT: normocephalic, atraumatic, good hearing acuity, moist mucous membranes Resp: good air exchange, breathing comfortably with no accessory muscle use CVS: good distal perfusion x 4, GI: soft, NTTP, ND : no SPT, no CVAT, yoder catheter not present MSK: no pitting edema, no clubbing Neuro: non-focal, moving all extremities Psych: cooperative, euthymic mood Assessment/plan: Patient is a 52-year-old female with a left femur fracture status post fall s/p IM nailing on 11/18/22. - PT/OT - pain control -Patient will need outpatient bone density testing for osteoporosis ABLA- Hgb 9.1, large drop in 24 houts - start oral iron therapy - anticipated outcome of surgery - follow CBC - no indication for transfusion at this time. Moderate persistent asthma, suboptimally controlled at baseline -Doubt acute exacerbation as patient states that breathing is at baseline. -continue scheduled DuoNeb's and when necessary albuterol - add LABA/Steroid inhaler to discharge. Tobacco abuse - nicotine replacement - cessation Elevated blood pressure with out diagnosis of hypertension, resolved Anticipate discharge to IPR vs home with HH, but safest plan of care would be former Thank you for allowing us to participate in the care of this pleasant patient. Do not hesitate to contact us with questions. Someone can be reached from the [facility] hospitalist group all hours of the day at [phone] or via perfect serve. Objective - Vital Signs Vital signs: Vital Signs Temp 98.1 F 11/22/22 07:59 Pulse 79 11/22/22 08:37 Resp 16 11/22/22 07:59 BP 117/78 11/22/22 07:59 Pulse Ox 97 11/22/22 08:38 FiO2 Intake & Output 11/21/22 11/22/22 11/22/22 18:59 06:59 18:59 Intake Total 1080 Balance 1080 Weight 90.718 kg Intake: Oral 1080 Other: Voiding Method Toilet Toilet Toilet # Voids 1 2 1 # Bowel Movements 1 - Labs CBC & Chem 7: 11/21/22 05:28 11/17/22 03:41
[2022-11-22] MEDS: MULTIVITAMINS, THERA 1 EACH TAB PO SCH (12:28)
[2022-11-22 13:56] VITALS: BP 148/68; TEMP 98.4
--- NOTE | 2022-11-22 15:35 | P.DS ---
Providers Date of admission: 11/17/22 04:33 Expected date of discharge: 11/22/22 Attending physician: Ian Funez Consults: 11/17/22 04:33 Consult Physician Routine Consulting Provider: James Foster Consult Reason/Comments: [employer] Do you want consulting provider notified?: Yes 11/20/22 13:42 Consult Physician Routine Consulting Provider: Chris Hu Consult Reason/Comments: weakness, hip fracture Do you want consulting provider notified?: Yes Primary care physician: Darnell Larson - Discharge Diagnosis(es) (1) Closed left hip fracture Patient was admitted to the OR on 11/18/22 to undergo a gamma nail for left IT fracture. She had suffered a fall at home on 11/17/22 resulting in left IT femur fracture. She desired to proceed with elective surgery after given informed consent. She underwent the above procedure which he tolerated well without complication. Postoperative hospital course has remained without complication. On day of discharge she is afebrile, vital signs stable, labs within acceptable ranges, tolerating by mouth meds and diet, voiding without difficulty, positive flatus, denies abdominal pain or calf pain, pain is controlled on oral pain medication and has no new complaints. Wound is benign, neurovascular status is intact, calf is soft and nontender, abdomen soft and nontender. Review of systems is negative for numbness, tingling, fever, chills, chest pain, shortness of breath, nausea, vomiting, dizziness, headaches, slurred speech or other. Current Visit: Yes Status: Acute Priority: Medium Procedures: left hip gamma nail Patient Condition at Discharge: Fair Plan - Discharge Summary New Discharge Prescriptions: New Ferrous Sulfate [Slow Fe] 142 mg PO DAILY #30 tab Multivitamins, Thera [Multivitamin (formulary)] 1 each PO DAILY@1200 tab Sennosides-Docusate Sodium [Senokot-S] 2 each PO HS tab Aspirin [Adult Low Dose Aspirin EC] 81 mg PO BID #60 tab Docusate [Colace] 100 mg PO BID #60 capsule HYDROcodone/APAP 7.5-325MG [Hildreth 7.5-325] 1 - 2 each PO Q6HR PRN #42 tab PRN Reason: Pain Fluticasone Propion/Salmeterol [Advair 250-50 Diskus] 1 inhalation PO BID #1 each Continue traZODone HCL [Desyrel] 50 mg PO HS PRN PRN Reason: SLEEP buPROPion XL [Wellbutrin XL] 150 mg PO DAILY FLUoxetine HCL 60 mg PO DAILY Albuterol Inhaler [Ventolin Hfa Inhaler] 2 puff INHALATION RT-QID PRN PRN Reason: Shortness Of Breath Discharge Medication List Albuterol Inhaler [Ventolin Hfa Inhaler] 2 puff INHALATION RT-QID PRN 11/17/22 [History] FLUoxetine HCL 60 mg PO DAILY 11/17/22 [History] buPROPion XL [Wellbutrin XL] 150 mg PO DAILY 11/17/22 [History] traZODone HCL [Desyrel] 50 mg PO HS PRN 11/17/22 [History] Aspirin [Adult Low Dose Aspirin EC] 81 mg PO BID #60 tab 11/19/22 [Rx] Docusate [Colace] 100 mg PO BID #60 capsule 11/19/22 [Rx] HYDROcodone/APAP 7.5-325MG [Hildreth 7.5-325] 1 - 2 each PO Q6HR PRN #42 tab 11/19/22 [Rx] Ferrous Sulfate [Slow Fe] 142 mg PO DAILY #30 tab 11/20/22 [Rx] Fluticasone Propion/Salmeterol [Advair 250-50 Diskus] 1 inhalation PO BID #1 each 11/20/22 [Rx] Multivitamins, Thera [Multivitamin (formulary)] 1 each PO DAILY@1200 tab 11/22/22 [Rx] Sennosides-Docusate Sodium [Senokot-S] 2 each PO HS tab 11/22/22 [Rx] Follow up Appointment(s)/Referral(s): Darnell Larson DO [Primary Care Provider] - 1-2 days Ian Funez MD [STAFF PHYSICIAN] - 12/05/22 1:15 pm Activity/Diet/Wound Care/Special Instructions: Touchdown weightbearing with walker at all times May shower after 3 days if no bleeding Keep wound clean and dry Take meds as directed F/U with Dr. Funez in office CBC in 3 days DX: anemia Discharge Disposition: TRANSFER TO SNF/F
[2022-11-22 16:29] VITALS: PULSE 80
== END 2022-11-22 18:35 | DRG 481 ==
LOC: EC 03:22 → 4SSUR 04:33
PROVIDERS: ADMIT Orthopaedic Surgery Sports Medicine; ATTEND Orthopaedic Surgery Sports Medicine
PROC: 0QS734Z Reposition Left Upper Femur with Internal Fixation Device, Percutaneous Approach (ICD-10-PCS; principal; 2022-11-21)
DX: S72.22XA Displaced subtrochanteric fracture of left femur, initial encounter for closed fracture (principal); D62 Acute posthemorrhagic anemia; S22.32XA Fracture of one rib, left side, initial encounter for closed fracture; J45.40 Moderate persistent asthma, uncomplicated; F17.210 Nicotine dependence, cigarettes, uncomplicated; M50.30 Other cervical disc degeneration, unspecified cervical region; R03.0 Elevated blood-pressure reading, without diagnosis of hypertension; W18.11XA Fall from or off toilet without subsequent striking against object, initial encounter; Y92.009 Unspecified place in unspecified non-institutional (private) residence as the place of occurrence of the external cause; Z79.899 Other long term (current) drug therapy; Z79.82 Long term (current) use of aspirin; Z79.51 Long term (current) use of inhaled steroids; Z88.0 Allergy status to penicillin; Z88.2 Allergy status to sulfonamides; Z86.14 Personal history of Methicillin resistant Staphylococcus aureus infection; Z87.81 Personal history of (healed) traumatic fracture
CPT/HCPCS: 36415; 70450; 71045; 72125; 73501; 73502; 80053; 85025; 85610; 85730; 86850; 86900; 86901; 87635; 93005; 94640; 94760; 96374; 96375; 99285

== ENCOUNTER → 2023-12-18 | Outpatient (CLI) | payer BC ==
--- NOTE | 2023-12-18 10:24 | XR ---
EXAMINATION TYPE: XR thoracic spine complete DATE OF EXAM: 12/18/2023 COMPARISON: NONE HISTORY: Pain TECHNIQUE: 3 views submitted FINDINGS: Alignment is anatomic. There is multilevel degenerative disc disease with multilevel compression def ormities throughout the thoracic spine of indeterminate age. Diffuse osteopenia. Ectasia of the aorta . Chronic rib deformities suggest remote trauma. IMPRESSION: 1. Multilevel degenerative disc disease with diffuse osteopenia. 2. Multilevel age indeterminate compression fractures. Consider follow-up MRI.
== END | disposition home or self-care (01) ==
LOC: RADXRYALE 09:53
PROVIDERS: ATTEND Physician Assistant Medical
DX: S22.000A Wedge compression fracture of unspecified thoracic vertebra, initial encounter for closed fracture (principal); M51.34 Other intervertebral disc degeneration, thoracic region; M85.88 Other specified disorders of bone density and structure, other site
CPT/HCPCS: 72072

== ENCOUNTER → 2024-01-29 | Outpatient (CLI) | payer BC ==
--- NOTE | 2024-01-29 12:41 | XR ---
EXAMINATION TYPE: XR chest 2V DATE OF EXAM: 01/29/2024 11:21 AM CLINICAL INDICATION:Female, 53 years old with history of R059 COUGH; COMPARISON: Chest radiographs from 11/17/2022 TECHNIQUE: XR chest 2V Frontal and lateral views of the chest. FINDINGS: Lungs/Pleura: There is flattening of the diaphragm with increased lucency of the lungs. No evidence o f pneumothorax, pleural effusion or focal consolidation. Pulmonary vascularity: Unremarkable. Heart/mediastinum: Cardiomediastinal silhouette is unremarkable. Musculoskeletal: No acute osseous pathology. Other findings: None IMPRESSION: 1. No acute cardiopulmonary disease process. 2. COPD changes.
== END | disposition home or self-care (01) ==
LOC: RADXRYALE 10:59
PROVIDERS: ATTEND Physician Assistant Medical
DX: J44.9 Chronic obstructive pulmonary disease, unspecified (principal)
CPT/HCPCS: 71046

== ENCOUNTER → 2024-04-07 | Outpatient (CLI) | payer BC ==
--- NOTE | 2024-04-07 13:46 | US ---
EXAMINATION TYPE: US thyroid st tissue head/neck DATE OF EXAM: 04/07/2024 COMPARISON: NONE CLINICAL INDICATION: Female, 53 years old with history of R13.10 DYSPHAGIA; dysphagia GLAND SIZE: Right Lobe: 4.5 x 1.9 x 2.0 cm Overall Parenchyma: heterogeneous Left Lobe: 5.2 x 1.9 x 2.0 cm Overall Parenchyma: heterogeneous Isthmus Thickness: 0.2 cm NODULES RIGHT: # of nodules measured on right: multiple nodules noted, largest measured 1. 1.4 X 1.1 x 1.1 cm, upper Prior size: no prior TIRADS Score: 3 TIRADS Category 3: Composition: Mixed cystic and solid (1 point). Echogenicity: Hypoechoic (2 points). Shape: Wider than tall (0 points). Margin: Smooth (0 points). Echogenic foci: None or large comet-tail artifacts (0 points) Recommendation: If >2.5cm: FNA; If >1.5cm: Follow up at 1,3,5 years LEFT: # of nodules measured on left: multiple nodules noted, largest measured 1. 3.4 X 1.6 x 1.9 cm, lower , Prior size: no prior TIRADS Score: 3 TIRADS Category 3: Composition: Solid or almost completely solid (2 points). Echogenicity: Hyperechoic or isoechoic (1 point). Shape: Wider than tall (0 points). Margin: Smooth (0 points). Echogenic foci: None or large comet-tail artifacts (0 points) Recommendation: If >2.5cm: FNA; If >1.5cm: Follow up at 1,3,5 years ISTHMUS: # of nodules measured in the isthmus: 0 Bilateral neck scanned, no evidence of lymphadenopathy. IMPRESSION: 1. Left thyroid nodule meets criteria for fine-needle aspiration performed. 2. Right thyroid nodule meets criteria for follow-up.
== END | disposition home or self-care (01) ==
LOC: RADUSWWP 12:20
PROVIDERS: ATTEND Family Medicine
DX: E04.2 Nontoxic multinodular goiter (principal); R13.10 Dysphagia, unspecified
CPT/HCPCS: 76536

== ENCOUNTER 2024-05-01 12:35 | Day surgery (SDC) | payer BC ==
[2024-05-01] MEDS: ALPRAZolam 0.5 MG TAB PO STA (12:52)
[2024-05-01 13:21] VITALS: RESP 18; TEMP 98.9
--- NOTE | 2024-05-01 14:48 | US ---
ULTRASOUND GUIDED FNA THYROID BIOPSY: CLINICAL HISTORY: Request for left thyroid nodule biopsy FINDINGS: The procedure was explained to the patient. The risks, complications, benefits and alternatives were discussed and any questions were answered. Informed consent was obtained. Patient was placed supin e on the ultrasound table and prepped and draped in the usual sterile fashion. Utilizing a 25 gauge needle, five passes were made into the requested left thyroid nodule. Patient was stable throughout the procedure. Pathology is pending. All elements of maximal barrier technique were utilized. IMPRESSION: 1. Successful ultrasound guided FNA thyroid biopsy.
[2024-05-01 15:06] VITALS: BP 138/89; PULSE 74
== END 2024-05-01 14:10 | disposition home or self-care (01) ==
LOC: RADPROMAIN 12:35
PROVIDERS: ATTEND Family Medicine
DX: E04.1 Nontoxic single thyroid nodule (principal)
CPT/HCPCS: 10005; 88173; 88305

== ENCOUNTER 2024-06-29 11:40 | Day surgery (SDC) | payer BC ==
[2024-06-26 08:57] VITALS: BMI 29.8
[2024-06-29 12:01] VITALS: TEMP 97
[2024-06-29] MEDS: LACTATED RINGERS 1,000 ML IV SCH (12:03)
[2024-06-29] MEDS: IV FLUID CONTINUATION 1,000 ML IV ONE (12:04)
[2024-06-29] MEDS: LIDOCAINE 1% (10MG/ML) FOR IV START INTRADERMA STA (12:04)
[2024-06-29] MEDS ORDERED: fentaNYL (PF) 50 MCG/ML 2 ML AMP ONE (13:34)
[2024-06-29] MEDS ORDERED: PROPOFOL 10 MG/ML 20 ML VIAL IV ONE (13:34)
[2024-06-29] MEDS ORDERED: LIDOCAINE 1% INJ 10MG/ML (20 ML MDV) ONE (13:34)
--- NOTE | 2024-06-29 14:13 | P.OP ---
Date of Procedure: 06/29/24 Preoperative Diagnosis: Gerd GI bleed gerd Postoperative Diagnosis: Antral gastritis Hiatal hernia Transverse colon ulcer/mass Procedure(s) Performed: EGD Colonoscopy Anesthesia: MAC Surgeon: Khris Kuo Pathology: other (From, transverse colon) Condition: stable Disposition: PACU Description of Procedure: Patient was placed on the endoscopy table in the lateral position. She received IV sedation. The gas was placed oropharynx passed in the esophagus and the stomach. Scope was then placed through the pylorus. The first and second portion of the duodenum appeared normal. Scope was then brought back to the antrum and this appeared mildly inflamed. A biopsy was performed. The scope w as then retroflexed and the remainder of the stomach appeared normal. The patient had a moderate size hiatal hernia. The GE junction was at 38 cm. The distal esophagus appeared mildly inflamed. The proximal esophagus appeared normal. Scope withdrawn the patient. Next digital rectal exam is performed. This revealed no abnormalities. A flex colonoscope was then placed patient anus and passed throughout the entire colon. The ileocecal valve was visualized. The cecum, ascending colon appeared normal. In the mid transverse colon appeared to be ulcerated mass. This was biopsied. The area was tattooed just distal to the area of the biopsy. The remainder transverse colon and descending colon appeared normal. Scope was back in the sigmoid colon this appeared normal. Scope was brought back to the rectum and this was normal. Scope was withdrawn from the patient.
[2024-06-29] MEDS: ONDANSETRON 4 MG/2 ML VIAL IVP STA (14:31)
[2024-06-29 14:33] VITALS: RESP 18
[2024-06-29 14:49] VITALS: BP 142/88; PULSE 79
== END 2024-06-29 15:08 | disposition home or self-care (01) ==
LOC: ORWHC2ENDO 11:40
PROVIDERS: ATTEND Surgery
DX: K29.50 Unspecified chronic gastritis without bleeding (principal); K63.3 Ulcer of intestine; I10 Essential (primary) hypertension; K44.9 Diaphragmatic hernia without obstruction or gangrene; K31.A0 Gastric intestinal metaplasia, unspecified; E78.5 Hyperlipidemia, unspecified; J45.909 Unspecified asthma, uncomplicated; F17.210 Nicotine dependence, cigarettes, uncomplicated; F12.90 Cannabis use, unspecified, uncomplicated; F32.A Depression, unspecified; Z88.0 Allergy status to penicillin; Z79.51 Long term (current) use of inhaled steroids; Z79.899 Other long term (current) drug therapy; Z88.2 Allergy status to sulfonamides
CPT/HCPCS: 88305; 45380; 43239; 45381; J2405; J2001; J3010; J2704

== ENCOUNTER 2024-07-21 09:00 | Day surgery (SDC) | payer BC ==
[~2024-07-21 09:00] MED LIST: ACETAMINOPHEN TAB 500 MG TAB ONE; DEXAMETHASONE SOD PHOSPHATE 4 MG/ML 1 ML VIAL ONE; HEPARIN SODIUM,PORCINE 5,000 UNIT/ML 1 ML VIAL ONE; ONDANSETRON 4 MG/2 ML VIAL ONE
[2024-07-21] MEDS ORDERED: hydrALAZINE HCL 20 MG/ML 1 ML VIAL ONE (10:51)
[2024-07-21] MEDS ORDERED: HYDROmorphone (PF) 1 MG/ML ONE (10:51)
[2024-07-21] MEDS ORDERED: fentaNYL (PF) 50 MCG/ML 2 ML AMP ONE (10:51)
[2024-07-21] MEDS ORDERED: SUCCINYLCHOLINE CHLORIDE 200 MG/10 ML VIAL IV ONE (10:51)
[2024-07-21] MEDS ORDERED: LIDOCAINE 4% LTA KIT (4 ML) TOPICAL ONE (10:51)
[2024-07-21] MEDS ORDERED: SODIUM CHLORIDE 0.9% 50 ML BAG ONE (10:51)
[2024-07-21] MEDS ORDERED: GLYCOPYRROLATE 0.2 MG/ML 2 ML VIAL ONE (10:51)
[2024-07-21] MEDS ORDERED: LACTATED RINGERS 1,000 ML BAG ONE (10:51)
[2024-07-21] MEDS ORDERED: PROPOFOL 10 MG/ML 20 ML VIAL IV ONE (10:51)
[2024-07-21] MEDS ORDERED: NEOSTIGMINE 1 MG/ML 10 ML VIAL ONE (10:51)
[2024-07-21] MEDS ORDERED: MIDAZOLAM 2 MG/2 ML VIAL ONE (10:51)
[2024-07-21] MEDS ORDERED: LIDOCAINE 1%-EPI 1:100,000 20 ML VIAL ONE (10:51)
[2024-07-21] MEDS ORDERED: LABETALOL 5 MG/ML VIAL MDV ONE (10:51)
[2024-07-21] MEDS ORDERED: ceFAZolin 1,000 MG VIAL ONE (10:51)
[2024-07-21] MEDS ORDERED: ROCURONIUM 10 MG/ML (5 ML VIAL) IV ONE (10:51)
[2024-07-21] MEDS ORDERED: HYDROmorphone 0.5 MG/0.5 ML SYRINGE ONE ×2 (12:26→13:36)
[2024-07-21] MEDS ORDERED: HYDROmorphone 1 MG/ML 1 ML SYRINGE ONE ×2 (18:37→23:14)
[2024-07-21] MEDS ORDERED: DEXTROSE 5%-0.45% NACL 1,000 ML BAG IV ONE (18:38)
[2024-07-21] MEDS ORDERED: DEXAMETHASONE SOD PHOSPHATE 4 MG/ML 1 ML VIAL ONE ×2 (18:41→23:13)
[2024-07-22] MEDS ORDERED: HYDROmorphone 1 MG/ML 1 ML SYRINGE ONE ×2 (01:45→06:07)
[2024-07-22] MEDS ORDERED: DEXAMETHASONE SOD PHOSPHATE 4 MG/ML 1 ML VIAL ONE (06:02)
[2024-07-22] MEDS ORDERED: amLODIPine 10 MG TAB ONE (08:00)
[2024-07-22] MEDS ORDERED: FLUoxetine HCL 20 MG CAP ONE (08:00)
[2024-07-22] MEDS ORDERED: PANTOPRAZOLE 40 MG TABLET PO ONE (08:00)
[2024-07-22] MEDS ORDERED: HYDROcodone/APAP 5-325MG 1 EACH TAB ONE (11:05)
--- NOTE | 2024-08-28 15:25 | OP ---
OPERATIVE REPORT DATE OF SERVICE : 07/21/2024 PROCEDURE: Laparoscopic Diego fundoplication. PREOPERATIVE DIAGNOSIS: Gastroesophageal reflux disease. POSTOPERATIVE DIAGNOSES: 1. Gastroesophageal reflux disease. 2. Hiatal hernia. ANESTHESIA: General endotracheal tube anesthesia. DESCRIPTION OF PROCEDURE: The patient was placed on the operating table in the supine position. She received general anesthesia. She was placed in dorsal lithotomy position. Her abdomen was prepped and draped in a usual sterile fashion. The skin incision sites were anesthetized with 1% local Xylocaine. The peritoneal cavity was entered using a 5 mm optical trocar under direct visualization in the left periumbilical area. After adequate insufflation, the 5 mm trocars were placed into the peritoneal cavity. The left lateral lobe of liver was retracted. The hiatal hernia was visualized. The hiatal hernia was repaired by dissecting the crura in a 360-degree fashion. The crura was then closed using 2-0 Ethibond suture. A 58-Uzbek Bougie dilator was used to incise the crural closure. Next, the fundus of the stomach was mobilized by dividing the short gastrics using the Harmonic scissors. Then a fundoplication wrap was performed using 2-0 Ethibond suture. Care was taken to preserve the stomach. The wrap was not too tight. The abdomen was irrigated. No bleeding seen. Trocar was withdrawn. Skin was closed with interrupted 3-0 Monocryl suture. Dermabond dressing was applied. The patient tolerated the procedure well. She was sent to recovery room in stable condition. MMODL / IJN: [id number] /
== END 2024-07-22 14:22 ==
LOC: OR 09:00
PROVIDERS: ATTEND Surgery
DX: K21.9 Gastro-esophageal reflux disease without esophagitis

== ENCOUNTER → 2025-05-26 | Outpatient (CLI) | payer OTHER ==
--- NOTE | 2025-05-26 11:52 | MM ---
Reason for Exam: Screening (asymptomatic). Last mammogram was performed 3 year(s) and 9 month(s) ago. Patient History: Menarche at age 13. First Full-Term at age 20. Postmenopausal. Patient has history of breast feeding. 2005, Excisional Biopsy on the Right side. Risk Values: Nelly 5 year model risk: 1.1%. NCI Lifetime model risk: 7.9%. Prior Study Comparison: 07/03/2013 Right Diagnostic Mammogram, [facility]. 05/13/2019 Bilateral Screening Mammogram, [facility]. 08/04/2021 Bilateral Screening Mammogram, [facility]. Tissue Density: There are scattered areas of fibroglandular density. Findings: Analyzed By CAD. Right breast: Palpable marker correlates to patient's cyst/oil cyst. Scattered benign-appearing calcific patient's. There is no suspicious group of microcalcifications or new suspicious mass. Left breast: There is no suspicious group of microcalcifications or new suspicious mass. Overall Assessment: Benign, BI-RAD 2 Management: Screening Mammogram of both breasts in [address] [facility] will attempt to contact patient to return for supplemental views and ultrasound if indicated. Patient should continue monthly self-breast exams. A clinical breast exam by your physician is recommended on an annual basis. This exam should not preclude additional follow-up of suspicious palpable abnormalities. Note on Nelly scores and lifetime risk: 1. A Nelly score greater than 3% is considered moderate risk. If this is the case, consider specialist referral to assess eligibility for a risk reducing agent. 2. If overall lifetime risk for the development of breast cancer is 20% or higher, the patient may qualify for future screening with alternating mammogram and breast MRI. [facility], , 05/26/2025 11:48 AM. Electronically signed and approved by: Jose Mei DO
== END | disposition home or self-care (01) ==
LOC: RADMAMWWP 10:07
PROVIDERS: ATTEND Family Medicine
DX: Z12.31 Encounter for screening mammogram for malignant neoplasm of breast (principal); R92.333 Mammographic heterogeneous density, bilateral breasts; Z78.0 Asymptomatic menopausal state
CPT/HCPCS: 77067